=== PATIENT | female | born 1940 | race Caucasian/White ===

== ENCOUNTER 2017-05-03 20:14 | Observation (INO) | payer MEDICARE, MEDICAID ==
[2017-05-03] MEDS ORDERED: Sodium Chloride 0.9% 10 ML Syringe FLUSH PRN (21:05)
[2017-05-03] MEDS ORDERED: Sodium Chloride 0.9% 1,000 ML IV ONE (21:06)
[2017-05-03] MEDS ORDERED: oxyCODONE 5 MG Tab PO ONE (21:07)
--- NOTE | 2017-05-03 21:11 | EDM.PDOC ---
ED HPI GENERAL MEDICAL PROBLEM - General Chief Complaint: Upper Extremity Injury/Pain Stated Complaint: MED [facility] Time Seen by Provider: 05/03/17 21:00 Source of Information: Reports: Patient, Family History Limitations: Reports: No Limitations - History of Present Illness INITIAL COMMENTS - FREE TEXT/NARRATIVE: Didi is a 76 year old female who presents to the ED today with her daughter after calling 911 for dizziness/lightheadedness. Patient dropped to her knees when this happened, she denies any head trauma. Patient arrives here with c/o right sided chest pain, worse with inspiration and palpation for two days, and non productive cough. Patient denies any unilateral weakness, fever, chills, nausea or vomiting. Patient does endorse chronic diarrhea, denies any hematochezia. Patient lives alone, she feels she is safe there but also endorses generalized weakness. Patient denies any dysuria or flank pain, does endorse a one week hx of urinary frequency, urgency and more "dribbling" than normal. Onset: Gradual Right Chest Pain Score (Numeric/FACES): 5 - Related Data Allergies Allergy/AdvReac Type Severity Reaction Status Date / Time latex Allergy Rash Verified 07/04/16 10:13 codeine AdvReac Hallucinati Verified 07/04/16 10:13 ons Home Meds: Home Meds Aspirin [Halfprin] 81 mg PO DAILY 07/20/13 [History] Isosorbide Mononitrate [Imdur] 30 mg PO DAILY 07/20/13 [History] Metoprolol Tartrate 25 mg PO BID 07/20/13 [History] Calcium Citrate/Vitamin D2 [Calcium Citrate with Vit D] 1 tab PO DAILY 07/26/13 [History] Cyanocobalamin (Vitamin B-12) [Vitamin B-12] 1,000 mcg SL ASDIRECTED 07/26/13 [ History] Multivitamin [Multi-Vitamin Daily] 1 tab PO BID 07/26/13 [History] Nitroglycerin [Nitrostat] 0.4 mg SL ASDIRECTED PRN 07/26/13 [History] Vitamin B6-pyridOXINE [Vitamin B6] 50 mg PO DAILY 07/26/13 [History] Venlafaxine [Effexor XR] 150 mg PO DAILY 01/09/15 [History] Vitamin B Complex [B-100 Complex] 1 each PO DAILY 01/09/15 [History] traZODone HCl [Trazodone HCl] 100 mg PO BEDTIME 01/09/15 [History] Amitriptyline [Elavil] 200 mg PO BEDTIME 07/01/16 [History] Cholecalciferol (Vitamin D3) [Vitamin D3] 1,000 units PO DAILY 07/01/16 [History ] Omeprazole 20 mg PO DAILY 07/01/16 [History] Simvastatin [Zocor] 20 mg PO DAILY 07/01/16 [History] Zolpidem [Ambien] 5 mg PO DAILY 07/01/16 [History] Calcium Carbonate/Vitamin D3 [Calcium 500 + Vit D 400] 1 tab PO DAILY 07/02/16 [ History] Past Medical History HEENT History: Reports: Impaired Vision Cardiovascular History: Reports: CAD, Hypertension, Other (See Below) Other Cardiovascular History: dyslipidemia venous insufficiency Gastrointestinal History: Reports: Colon Polyp Genitourinary History: Reports: Other (See Below) Other Genitourinary History: urgency [employer] History: Reports: Dysfunctional Uterine Bleeding, Musculoskeletal History: Reports: Arthritis, RA Neurological History: Reports: Neuropathy, Peripheral Psychiatric History: Reports: Anxiety, Bipolar, Depression, Other (See Below) Other Psychiatric History: memory loss. Hematologic History: Reports: Anemia - Infectious Disease History Infectious Disease History: Reports: Chicken Pox, Shingles - Past Surgical History Head Surgeries/Procedures: Reports: None HEENT Surgical History: Reports: Cataract Surgery Cardiovascular Surgical History: Reports: Coronary Artery Bypass, Coronary Artery Stent GI Surgical History: Reports: Appendectomy, Bariatric Procedure, Cholecystectomy , Colonoscopy, EGD Endocrine Surgical History: Reports: None Musculoskeletal Surgical History: Reports: Knee Replacement, ORIF, Other (See Below) Social & Family History - Tobacco Use Smoking Status *Q: Never Smoker Years of Tobacco use: 40 Used Tobacco, but Quit: Yes Month Tobacco Last Used: 15 years ago Second Hand Smoke Exposure: No - Caffeine Use Caffeine Use: Reports: None - Alcohol Use Days Per Week of Alcohol Use: 0 - Recreational Drug Use Recreational Drug Use: No Review of Systems - Review of Systems Review Of Systems: See Below Constitutional: Reports: Weakness Eyes: Reports: No Symptoms Ears: Reports: No Symptoms Nose: Reports: No Symptoms Mouth/Throat: Reports: No Symptoms Respiratory: Reports: Pleuritic Chest Pain, Cough Cardiovascular: Reports: Chest Pain, Lightheadedness GI/Abdominal: Reports: Diarrhea Genitourinary: Reports: No Symptoms Musculoskeletal: Reports: Arm Pain (right upper arm) Skin: Reports: Bruising Neurological: Reports: Dizziness Psychiatric: Reports: No Symptoms ED EXAM, GENERAL - Physical Exam Exam: See Below Exam Limited By: No Limitations General Appearance: Alert, WD/WN, No Apparent Distress Eye Exam: Bilateral Eye: EOMI, PERRL Ears: Normal External Exam, Hearing Grossly Normal Neck: Normal Inspection, Supple, Non-Tender Respiratory/Chest: No Respiratory Distress, Lungs Clear, Other (Right sided chest wall tenderness) Cardiovascular: Bradycardia, Systolic Murmur (faint) Peripheral Pulses: 2+: Dorsalis Pedis (L), Dorsalis Pedis (R) GI/Abdominal: Normal Bowel Sounds, Soft, Non-Tender Extremities: Normal Range of Motion, Normal Capillary Refill, Other (tenderness right humerus) Neurological: Alert, Oriented, CN II-XII Intact, Normal Cognition, No Motor/ Sensory Deficits Psychiatric: Normal Affect Skin Exam: Warm, Dry, Intact Lymphatic: No Adenopathy EKG INTERPRETATION EKG Date: 05/03/17 Time: 21:41 Rhythm: NSR [place]: Normal P-Wave: Present QRS: Normal ST-T: Normal QT: Normal Comparison: No Change Course - Vital Signs Last Recorded V/S: Last Vital Signs Temp 36.7 C 05/03/17 20:42 Pulse 52 L 05/03/17 22:34 Resp 16 05/03/17 22:34 BP 163/83 H 05/03/17 22:34 Pulse Ox 90 L 05/03/17 22:34 Didi is a 76 year old female who presents to the ED today via EMS after having a near syncopal episode. Please refer to HPI and focused exam. Patient on arrival here endorses dizziness and generalized weakness, worse the last couple of days as well as increased urgency/frequency/dribbling. Patient on arrival here c/o right sided chest pain, likely pleuritic in nature as it worsens with palpation and inspiration, EKG obtained and is negative for any acute ischemic findings. CXR obtained and is negative for any acute findings as well. PIV established, patient given a 500 ml NS bolus, blood work and urine obtained. Patient was given a dose of oxycodone for her right chest pain as well as right arm pain with good improvement. Patient did fall on right arm a month ago with no imaging at that time, x-ray of humerus obtained in the ED today and is negative. CT scan of head obtained and is negative for any acute intracranial abnormality. Blood work shows a normal white count and stable HGB. CMP returns with anion gap of 4.9. Calcium is 8.4, alkaline phos of 145, total protein of 6.2. Troponin is undetectable. UA is positive, UC pending. Patient given a dose of IV Rocephin. I feel based on near syncope with acute infection , patient would be appropriate for observation admission, fluids and antibiotics. Likely be fine to discharge tomorrow morning. Patient and daughter agreeable. Dr. Calderon accepted patient and will be down to do admit orders. - Orders/Labs/Meds Orders: Active Orders 24 hr Category Date Time Status EKG Documentation Completion [RC] ASDIRECTED Care 05/03/17 21:05 Active Peripheral IV Care [RC] . DIRECTED Care 05/03/17 21:05 Active Chest 2V [CR] Stat Exams 05/03/17 21:06 Taken Head wo Cont [CT] Stat Exams 05/03/17 21:14 Ordered Humerus Rt [CR] Stat Exams 05/03/17 21:06 Taken CULTURE URINE [RM] Stat Lab 05/03/17 22:00 Received Sodium Chloride 0.9% [Normal Saline] 1,000 ml Med 05/03/17 21:06 Active IV .BOLUS Sodium Chloride 0.9% [Saline Flush] Med 05/03/17 21:05 Active 10 ml FLUSH ASDIRECTED PRN cefTRIAXone [Rocephin] 1 gm Med 05/03/17 22:47 Ordered Sodium Chloride 0.9% [Normal Saline] 50 ml IV ONETIME Peripheral IV Insertion Adult [OM.PC] Routine Oth 05/03/17 21:05 Ordered EKG 12 Lead [EK] Stat Ther 05/03/17 21:05 Ordered Medication Orders Sodium Chloride (Normal Saline) 1,000 mls @ 500 mls/hr IV .BOLUS ONE Stop: 05/03/17 23:05 Last Admin: 05/03/17 21:28 Dose: 500 mls/hr Ceftriaxone Sodium 1 gm/ (Sodium Chloride) 50 mls @ 100 mls/hr IV ONETIME ONE Stop: 05/03/17 23:16 Sodium Chloride (Saline Flush) 10 ml FLUSH ASDIRECTED PRN PRN Reason: Keep Vein Open Last Admin: 05/03/17 21:28 Dose: 10 ml Labs: Laboratory Tests 05/03/17 05/03/17 05/03/17 Range/Units 21:18 21:18 21:43 WBC 5.1 (4.5-11.0) K/uL RBC 4.62 (3.30-5.50) M/uL Hgb 12.9 (12.0-15.0) g/dL Hct 41.3 (36.0-48.0) % MCV 89 (80-98) fL MCH 28 (27-31) pg MCHC 31 L (32-36) % Plt Count 179 (150-400) K/uL Neut % (Auto) 53 (36-66) % Lymph % (Auto) 32 (24-44) % [place] % (Auto) 10 H (2-6) % Eos % (Auto) 5 H (2-4) % Baso % (Auto) 1 (0-1) % Sodium 142 (140-148) mmol/L Potassium 4.4 (3.6-5.2) mmol/L Chloride 107 (100-108) mmol/L Carbon Dioxide 30 (21-32) mmol/L Anion Gap 4.9 L (5.0-14.0) mmol/L BUN 14 (7-18) mg/dL Creatinine 0.8 (0.6-1.0) mg/dL Est Cr Clr Drug Dosing 43.64 mL/min Estimated GFR (MDRD) > 60 (>60) Glucose 87 (74-106) mg/dL Calcium 8.4 L (8.5-10.1) mg/dL Total Bilirubin 0.2 D (0.2-1.0) mg/dL AST 20 (15-37) U/L ALT 16 (12-78) U/L Alkaline Phosphatase 145 H (46-116) U/L Troponin I < 0.017 (0.000-0.056) ng/mL Total Protein 6.2 L (6.4-8.2) g/dL Albumin 2.8 L (3.4-5.0) g/dL Globulin 3.4 (2.3-3.5) g/dL Albumin/Globulin Ratio 0.8 L (1.2-2.2) Urine Color Yellow Urine Appearance Cloudy Urine pH 5.0 (4.5-8.0) Ur Specific [place] 1.020 (1.008-1.030) Urine Protein Negative (NEGATIVE) mg/dL Urine Glucose (UA) Normal (NEGATIVE) mg/dL Urine Ketones Negative (NEGATIVE) mg/dL Urine Occult Blood Negative (NEGATIVE) Urine Nitrite Negative (NEGATIVE) Urine Bilirubin Small (NEGATIVE) Urine Urobilinogen 1 (NORMAL) mg/dL Ur Leukocyte Esterase Large (NEGATIVE) Urine RBC Not seen (0-5) Urine WBC 20-30 H (0-5) Ur Epithelial Cells Occasional Amorphous Sediment Few Urine Bacteria Few Urine Mucus Numerous Meds: Medications Generic Name Dose Route Start Last Admin Trade Name Freq PRN Reason Stop Dose Admin Sodium Chloride 1,000 mls @ 500 mls/hr 05/03/17 21:06 05/03/17 21:28 Normal Saline IV 05/03/17 23:05 500 mls/hr .BOLUS ONE Administration Ceftriaxone Sodium 1 gm/ 50 mls @ 100 mls/hr 05/03/17 22:47 Sodium Chloride IV 05/03/17 23:16 ONETIME ONE Sodium Chloride 10 ml 05/03/17 21:05 05/03/17 21:28 Saline Flush FLUSH 10 ml ASDIRECTED PRN Administration Keep Vein Open Discontinued Medications Generic Name Dose Route Start Last Admin Trade Name Freq PRN Reason Stop Dose Admin Oxycodone HCl 10 mg 05/03/17 21:07 05/03/17 21:25 Oxycodone PO 05/03/17 21:08 10 mg ONETIME ONE Administration Oxycodone HCl Confirm 05/03/17 21:27 Oxycodone Administered 05/03/17 21:28 Dose 5 mg .ROUTE .STK-MED ONE Departure - Departure Time of Disposition: 23:15 Disposition: Admitted As Inpatient 67 Condition: Good Clinical Impression: Near syncope, UTI (urinary tract infection), bacterial, Generalized weakness - Discharge Information Forms: ED Department Discharge - My Orders Last 24 Hours: My Active Orders 05/03/17 21:05 EKG Documentation Completion [RC] ASDIRECTED Peripheral IV Care [RC] . DIRECTED Sodium Chloride 0.9% [Saline Flush] 10 ml FLUSH ASDIRECTED PRN Peripheral IV Insertion Adult [OM.PC] Routine EKG 12 Lead [EK] Stat 05/03/17 21:06 Chest 2V [CR] Stat Humerus Rt [CR] Stat Sodium Chloride 0.9% [Normal Saline] 1,000 ml IV .BOLUS 05/03/17 21:14 Head wo Cont [CT] Stat 05/03/17 22:00 CULTURE URINE [RM] Stat 05/03/17 22:47 cefTRIAXone [Rocephin] 1 gm Sodium Chloride 0.9% [Normal Saline] 50 ml IV ONETIME - Assessment/Plan Last 24 Hours: My Active Orders 05/03/17 21:05 EKG Documentation Completion [RC] ASDIRECTED Peripheral IV Care [RC] . DIRECTED Sodium Chloride 0.9% [Saline Flush] 10 ml FLUSH ASDIRECTED PRN Peripheral IV Insertion Adult [OM.PC] Routine EKG 12 Lead [EK] Stat 05/03/17 21:06 Chest 2V [CR] Stat Humerus Rt [CR] Stat Sodium Chloride 0.9% [Normal Saline] 1,000 ml IV .BOLUS 05/03/17 21:14 Head wo Cont [CT] Stat 05/03/17 22:00 CULTURE URINE [RM] Stat 05/03/17 22:47 cefTRIAXone [Rocephin] 1 gm Sodium Chloride 0.9% [Normal Saline] 50 ml IV ONETIME
[2017-05-03] MEDS ORDERED: oxyCODONE 5 MG Tab ONE (21:27)
[2017-05-03] MEDS ORDERED: cefTRIAXone 1 GM in Sodium Chloride 0.9% 50 ML IV ONE (22:47)
--- NOTE | 2017-05-03 23:39 | PCM.HP ---
H&P History of Present Illness - General Date of Service: 05/03/17 Admit Problem/Dx: Admission Diagnosis/Problem Admission Diagnosis/Problem Weakness Source of Information: Patient, Provider, RN Notes Reviewed History Limitations: Reports: No Limitations - History of Present Illness Initial Comments - Free Text/Narative: Ms. Alcaraz is a 76-year-old woman who is admitted to observation status through the emergency department for further observation and evaluation of weakness and urinary tract infection. She'll not felt well over the past 2 days is experienced some right shoulder and arm pain for the past month seems to been worse over the past [address] scan of the head was obtained and found to be unremarkable chest x-ray is clear. White blood cell count modestly elevated and she is noted to have obvious evidence of urinary tract infection. Over the past 2 days with increase in symptoms has become progressively more weak. Right Chest Pain Score (Numeric/FACES): 5 - Related Data Allergies/Adverse Reactions: Allergies Allergy/AdvReac Type Severity Reaction Status Date / Time latex Allergy Rash Verified 07/04/16 10:13 codeine AdvReac Hallucinati Verified 07/04/16 10:13 ons Home Medications: Home Meds Aspirin [Halfprin] 81 mg PO DAILY 07/20/13 [History] Isosorbide Mononitrate [Imdur] 30 mg PO DAILY 07/20/13 [History] Metoprolol Tartrate 25 mg PO BID 07/20/13 [History] Calcium Citrate/Vitamin D2 [Calcium Citrate with Vit D] 1 tab PO DAILY 07/26/13 [History] Cyanocobalamin (Vitamin B-12) [Vitamin B-12] 1,000 mcg SL ASDIRECTED 07/26/13 [ History] Multivitamin [Multi-Vitamin Daily] 1 tab PO BID 07/26/13 [History] Nitroglycerin [Nitrostat] 0.4 mg SL ASDIRECTED PRN 07/26/13 [History] Vitamin B6-pyridOXINE [Vitamin B6] 50 mg PO DAILY 07/26/13 [History] Venlafaxine [Effexor XR] 150 mg PO DAILY 01/09/15 [History] Vitamin B Complex [B-100 Complex] 1 each PO DAILY 01/09/15 [History] traZODone HCl [Trazodone HCl] 100 mg PO BEDTIME 04/06/15 [History] Amitriptyline [Elavil] 200 mg PO BEDTIME 07/01/16 [History] Cholecalciferol (Vitamin D3) [Vitamin D3] 1,000 units PO DAILY 07/01/16 [History ] Omeprazole 20 mg PO DAILY 07/01/16 [History] Simvastatin [Zocor] 20 mg PO DAILY 07/01/16 [History] Zolpidem [Ambien] 5 mg PO DAILY 07/01/16 [History] Calcium Carbonate/Vitamin D3 [Calcium 500 + Vit D 400] 1 tab PO DAILY 07/02/16 [ History] Past Medical History HEENT History: Reports: Impaired Vision Cardiovascular History: Reports: CAD, Hypertension, Other (See Below) Other Cardiovascular History: dyslipidemia venous insufficiency Gastrointestinal History: Reports: Colon Polyp Genitourinary History: Reports: Other (See Below) Other Genitourinary History: urgency [employer] History: Reports: Dysfunctional Uterine Bleeding, Musculoskeletal History: Reports: Arthritis, RA Neurological History: Reports: Neuropathy, Peripheral Psychiatric History: Reports: Anxiety, Bipolar, Depression, Other (See Below) Other Psychiatric History: memory loss. Hematologic History: Reports: Anemia - Infectious Disease History Infectious Disease History: Reports: Chicken Pox, Shingles - Past Surgical History Head Surgeries/Procedures: Reports: None HEENT Surgical History: Reports: Cataract Surgery Cardiovascular Surgical History: Reports: Coronary Artery Bypass, Coronary Artery Stent GI Surgical History: Reports: Appendectomy, Bariatric Procedure, Cholecystectomy , Colonoscopy, EGD Endocrine Surgical History: Reports: None Musculoskeletal Surgical History: Reports: Knee Replacement, ORIF, Other (See Below) Social & Family History - Tobacco Use Smoking Status *Q: Never Smoker Years of Tobacco use: 40 Used Tobacco, but Quit: Yes Month Tobacco Last Used: 15 years ago Second Hand Smoke Exposure: No - Caffeine Use Caffeine Use: Reports: None - Alcohol Use Days Per Week of Alcohol Use: 0 - Recreational Drug Use Recreational Drug Use: No H&P Review of Systems - Review of Systems: Review Of Systems: See Below General: Reports: Weakness. Denies: Fever, Chills HEENT: Reports: No Symptoms Pulmonary: Reports: No Symptoms Cardiovascular: Reports: No Symptoms Gastrointestinal: Reports: No Symptoms Genitourinary: Denies: Dysuria, Frequency, Burning, Urgency, Incontinence, Hematuria Musculoskeletal: Reports: Shoulder Pain, Arm Pain Skin: Reports: No Symptoms Psychiatric: Reports: No Symptoms Neurological: Reports: No Symptoms Hematologic/Lymphatic: Reports: No Symptoms Immunologic: Reports: No Symptoms Exam - Exam Exam: See Below - Vital Signs Vital Signs: Last Vital Signs Temp 98.1 F 05/03/17 20:42 Pulse 52 L 05/03/17 22:34 Resp 16 05/03/17 22:34 BP 163/83 H 05/03/17 22:34 Pulse Ox 90 L 05/03/17 22:34 Weight: 160 lb - Exam Quality Assessment: DVT Prophylaxis General: Alert, Oriented, Cooperative, Mild Distress HEENT: Conjunctiva Clear, EOMI, Hearing Intact, Mucosa Moist & [place], Nares Patent, Normal Nasal Septum, Posterior Pharynx Clear, Pupils Equal Neck: Supple, Trachea Midline, +2 Carotid Pulse wo Bruit Lungs: Clear to Auscultation, Normal Respiratory Effort Cardiovascular: Regular Rate, Regular Rhythm, Normal S1, Normal S2. No: Systolic Murmur, Diastolic Murmur GI/Abdominal Exam: Normal Bowel Sounds, Soft, Non-Tender, No Distention Back Exam: Normal Inspection, Full Range of Motion, NT Extremities: Other (Pain right shoulder and arm) Skin: Warm, Dry, Intact Neurological: Cranial Nerves Intact, Strength Equal Bilateral, Normal Speech, Normal Tone, Sensation Intact. No: Focal Deficit Neuro Extensive - Mental Status: Alert, Oriented x3, Normal Mood/Affect, Normal Cognition, Memory Intact - Patient Data Lab Results Last 24 hrs: Laboratory Results - last 24 hr 05/03/17 05/03/17 05/03/17 Range/Units 21:18 21:18 21:43 WBC 5.1 (4.5-11.0) K/uL RBC 4.62 (3.30-5.50) M/uL Hgb 12.9 (12.0-15.0) g/dL Hct 41.3 (36.0-48.0) % MCV 89 (80-98) fL MCH 28 (27-31) pg MCHC 31 L (32-36) % Plt Count 179 (150-400) K/uL Neut % (Auto) 53 (36-66) % Lymph % (Auto) 32 (24-44) % [place] % (Auto) 10 H (2-6) % Eos % (Auto) 5 H (2-4) % Baso % (Auto) 1 (0-1) % Sodium 142 (140-148) mmol/L Potassium 4.4 (3.6-5.2) mmol/L Chloride 107 (100-108) mmol/L Carbon Dioxide 30 (21-32) mmol/L Anion Gap 4.9 L (5.0-14.0) mmol/L BUN 14 (7-18) mg/dL Creatinine 0.8 (0.6-1.0) mg/dL Est Cr Clr Drug Dosing 43.64 mL/min Estimated GFR (MDRD) > 60 (>60) Glucose 87 (74-106) mg/dL Calcium 8.4 L (8.5-10.1) mg/dL Total Bilirubin 0.2 D (0.2-1.0) mg/dL AST 20 (15-37) U/L ALT 16 (12-78) U/L Alkaline Phosphatase 145 H (46-116) U/L Troponin I < 0.017 (0.000-0.056) ng/mL Total Protein 6.2 L (6.4-8.2) g/dL Albumin 2.8 L (3.4-5.0) g/dL Globulin 3.4 (2.3-3.5) g/dL Albumin/Globulin Ratio 0.8 L (1.2-2.2) Urine Color Yellow Urine Appearance Cloudy Urine pH 5.0 (4.5-8.0) Ur Specific [place] 1.020 (1.008-1.030) Urine Protein Negative (NEGATIVE) mg/dL Urine Glucose (UA) Normal (NEGATIVE) mg/dL Urine Ketones Negative (NEGATIVE) mg/dL Urine Occult Blood Negative (NEGATIVE) Urine Nitrite Negative (NEGATIVE) Urine Bilirubin Small (NEGATIVE) Urine Urobilinogen 1 (NORMAL) mg/dL Ur Leukocyte Esterase Large (NEGATIVE) Urine RBC Not seen (0-5) Urine WBC 20-30 H (0-5) Ur Epithelial Cells Occasional Amorphous Sediment Few Urine Bacteria Few Urine Mucus Numerous Result Diagrams: 05/03/17 21:18 05/03/17 21:18 *Q Meaningful Use (ADM) - VTE *Q VTE Criteria *Q: - VTE Risk Assess *Q Each Risk Factor Represents 1 Point: Obesity (BMI greater than 30) Total Score 1 Point Risk Factors: 1 Each Risk Factor Represents 2 Points: None Total Score 2 Point Risk Factors: 0 Each Risk Factor Represents 3 Points: Age 75 Years or Greater Total Score 3 Point Risk Factors: 3 Each Risk Factor Represents 5 Points: None Total Score 5 Point Risk Factors: 0 Venous Thromboembolism Risk Factor Score *Q: 4 - Stroke *Q Stroke Criteria *Q: - AMI *Q AMI Criteria *Q: Problem List Initiated/Reviewed/Updated: Yes Orders Last 24hrs: Active Orders 24 hr Category Date Time Status Patient Status Manage Transfer [TRANSFER] Routine ADT 05/03/17 23:14 Active EKG Documentation Completion [RC] ASDIRECTED Care 05/03/17 21:05 Active Peripheral IV Care [RC] . DIRECTED Care 05/03/17 21:05 Active Chest 2V [CR] Stat Exams 05/03/17 21:06 Taken Head wo Cont [CT] Stat Exams 05/03/17 21:14 Taken Humerus Rt [CR] Stat Exams 05/03/17 21:06 Taken CULTURE URINE [RM] Stat Lab 05/03/17 22:00 Received Sodium Chloride 0.9% [Saline Flush] Med 05/03/17 21:05 Active 10 ml FLUSH ASDIRECTED PRN Peripheral IV Insertion Adult [OM.PC] Routine Oth 05/03/17 21:05 Ordered Resuscitation Status Routine Resus Stat 05/03/17 23:17 Ordered EKG 12 Lead [EK] Stat Ther 05/03/17 21:05 Ordered Medication Orders Sodium Chloride (Saline Flush) 10 ml FLUSH ASDIRECTED PRN PRN Reason: Keep Vein Open Last Admin: 05/03/17 21:28 Dose: 10 ml Assessment/Plan Comment:: ASSESSMENT AND PLAN URINARY TRACT INFECTION-no significant symptoms or evidence of sepsis -IV fluids for hydration -Urine culture pending -Rocephin 1 g IV every 24 hours WEAKNESS-secondary to urinary tract infection -IV fluids as above MAINTENANCE ISSUES -DVT prophylaxis; Lovenox 40 mg subcutaneous daily -GI prophylaxis; continue outpatient PPI therapy -Downs catheter; not indicated -Nutrition; regular diet -Nicotinic dependence; not required CODE STATUS-FULL CODE ADMISSION STATUS-this patient will be admitted to observation status, expect no more than a one night hospital stay for evaluation and management of problems as outlined above. DISPOSITION-anticipate discharge to home after the hospital stay. PRIMARY CARE PROVIDER-
[2017-05-04] MEDS ORDERED: Docusate Sodium 100 MG Cap PO PRN (00:24)
[2017-05-04] MEDS ORDERED: Sodium Chloride 0.9% 10 ML Syringe FLUSH PRN (00:24)
[2017-05-04] MEDS ORDERED: Magnesium Hydroxide 400 MG/5 ML Susp 30 ML Cup PO PRN (00:24)
[2017-05-04] MEDS ORDERED: cefTRIAXone 1 GM in Sodium Chloride 0.9% 50 ML IV SCH (00:24)
[2017-05-04] MEDS ORDERED: Zolpidem 5 MG Tab PO PRN (00:24)
[2017-05-04] MEDS ORDERED: Ondansetron 4 MG/2 ML SDV IV PRN (00:24)
[2017-05-04] MEDS ORDERED: Enoxaparin 40 MG/0.4 ML Syringe SUBCUT SCH ×2 (00:24→21:00)
[2017-05-04] MEDS ORDERED: Polyethylene Glycol 3350 Powder 17 GM Packet PO PRN (00:24)
[2017-05-04] MEDS ORDERED: Acetaminophen 325 MG Tab PO PRN (00:24)
[2017-05-04] MEDS: Sodium Chloride 0.9% 1,000 ML IV SCH ×2 (00:49→07:58)
[2017-05-04] MEDS: oxyCODONE 5 MG Tab PO PRN ×2 (01:06→05:17)
[2017-05-04] MEDS ORDERED: Pantoprazole 40 MG Tab.CR PO SCH (07:30)
[2017-05-04] MEDS ORDERED: Simvastatin 20 MG Tab PO SCH (09:00)
[2017-05-04] MEDS ORDERED: Metoprolol Tartrate 25 MG Tab PO SCH (09:00)
[2017-05-04] MEDS ORDERED: Venlafaxine 75 MG Cap.ER PO SCH (09:00)
[2017-05-04] MEDS ORDERED: Aspirin 81 MG Tab.EC PO SCH (09:00)
--- NOTE | 2017-05-04 11:20 | PCM.DCSUM1 ---
Discharge Summary - Hospital Course Brief History: Ms. Alcaraz is a 76-year-old woman who was admitted to observation status through the emergency room for evaluation of weakness secondary to urinary tract infection and dehydration. - Discharge Data Discharge Date: 05/04/17 Discharge Disposition: Home, Self-Care 01 Condition: Fair - Discharge Diagnosis/Problem(s) (1) UTI (urinary tract infection), bacterial SNOMED Code(s): 154087077 ICD Code: N39.0 - URINARY TRACT INFECTION, SITE NOT SPECIFIED; A49.9 - BACTERIAL INFECTION, UNSPECIFIED Status: Acute Current Visit: Yes (2) Generalized weakness SNOMED Code(s): 23526804 ICD Code: R53.1 - WEAKNESS Status: Acute Current Visit: Yes (3) Dehydration SNOMED Code(s): 72757847 ICD Code: E86.0 - DEHYDRATION Status: Acute Current Visit: No - Patient Summary/Data Hospital Course: Ms. Alcaraz is a 76-year-old woman who developed symptoms of weakness over a period of 2 days prior to admission. She also is had ongoing difficulty with pain in her right shoulder extending into the right upper lateral chest wall. CT scan of the head was obtained in the emergency department and showed no acute abnormalities. Troponin level was normal and EKG showed no acute ST segment changes. She had tenderness to palpation in the shoulder and upper chest wall pain was felt to be secondary to musculoskeletal cause, likely muscular chest wall pain with underlying osteoarthritis of the right shoulder. Urinalysis did show evidence of urinary tract infection and she was felt to be dehydrated causing her weakness. She was admitted to observation status and given IV fluids for hydration as well as a dose of IV Rocephin. Urine culture was obtained prior to antibiotic therapy and the results are pending at the time of discharge. She was feeling somewhat better by the following morning and will be discharged home on oral antibiotic therapy with Septra DS 1 by mouth twice a day for an additional 6 days. Activity will be as tolerated and she will resume her usual diet. Follow-up appointment will be scheduled with her primary care provider Melly Ignacio within one week. - Patient Instructions Diet: Usual Diet as Tolerated Activity: As Tolerated Other/Special Instructions: Please schedule follow-up appointment with Melly Ignacio within one week. - Discharge Plan Prescriptions/Med Rec: Sulfamethoxazole/Trimethoprim [Septra DS] 1 each PO BID #12 tab Home Medications: Home Meds Aspirin [Halfprin] 81 mg PO DAILY 07/20/13 [History] Isosorbide Mononitrate [Imdur] 30 mg PO DAILY 07/20/13 [History] Metoprolol Tartrate 25 mg PO BID 07/20/13 [History] Calcium Citrate/Vitamin D2 [Calcium Citrate with Vit D] 1 tab PO DAILY 07/26/13 [History] Cyanocobalamin (Vitamin B-12) [Vitamin B-12] 1,000 mcg SL ASDIRECTED 07/26/13 [ History] Multivitamin [Multi-Vitamin Daily] 1 tab PO BID 07/26/13 [History] Nitroglycerin [Nitrostat] 0.4 mg SL ASDIRECTED PRN 07/26/13 [History] Vitamin B6-pyridOXINE [Vitamin B6] 50 mg PO DAILY 07/26/13 [History] Venlafaxine [Effexor XR] 150 mg PO DAILY 01/09/15 [History] Vitamin B Complex [B-100 Complex] 1 each PO DAILY 01/09/15 [History] traZODone HCl [Trazodone HCl] 100 mg PO BEDTIME 01/09/15 [History] Amitriptyline [Elavil] 200 mg PO BEDTIME 07/01/16 [History] Cholecalciferol (Vitamin D3) [Vitamin D3] 1,000 units PO DAILY 07/01/16 [History ] Omeprazole 20 mg PO DAILY 07/01/16 [History] Simvastatin [Zocor] 20 mg PO DAILY 07/01/16 [History] Zolpidem [Ambien] 5 mg PO DAILY 07/01/16 [History] Calcium Carbonate/Vitamin D3 [Calcium 500 + Vit D 400] 1 tab PO DAILY 07/02/16 [ History] Sulfamethoxazole/Trimethoprim [Septra DS] 1 each PO BID #12 tab 05/04/17 [Rx] Referrals: Melly Ignacio NP [Advanced RN Practitioner] - - Patient Data Vitals - Most Recent: Last Vital Signs Temp 97.1 F 05/04/17 07:35 Pulse 94 05/04/17 08:36 Resp 16 05/04/17 07:35 BP 110/65 05/04/17 08:36 Pulse Ox 94 L 05/04/17 07:35 Weight - Most Recent: 165 lb 5.547 oz I&O - Last 24 hours: Intake & Output 07/29/17 07/30/17 07/30/17 22:59 06:59 14:59 Intake Total 674 480 Balance 674 480 Lab Results - Last 24 hrs: Laboratory Results - last 24 hr 05/04/17 05/04/17 Range/Units 05:30 05:30 WBC 6.1 (4.5-11.0) K/uL RBC 4.36 (3.30-5.50) M/uL Hgb 12.4 (12.0-15.0) g/dL Hct 39.5 (36.0-48.0) % MCV 91 (80-98) fL MCH 28 (27-31) pg MCHC 31 L (32-36) % Plt Count 165 (150-400) K/uL Neut % (Auto) 57 (36-66) % Lymph % (Auto) 28 (24-44) % [place] % (Auto) 11 H (2-6) % Eos % (Auto) 5 H (2-4) % Baso % (Auto) 1 (0-1) % Sodium 142 (140-148) mmol/L Potassium 3.8 (3.6-5.2) mmol/L Chloride 110 H (100-108) mmol/L Carbon Dioxide 27 (21-32) mmol/L Anion Gap 8.8 (5.0-14.0) mmol/L BUN 12 (7-18) mg/dL Creatinine 0.7 (0.6-1.0) mg/dL Est Cr Clr Drug Dosing 49.88 mL/min Estimated GFR (MDRD) > 60 (>60) Glucose 73 L (74-106) mg/dL Calcium 8.1 L (8.5-10.1) mg/dL Med Orders - Current: Current Medications Acetaminophen (Tylenol) 650 mg PO Q4H PRN PRN Reason: Pain (Mild 1-3)/fever Amitriptyline HCl (Elavil) 200 mg PO BEDTIME BETO Aspirin (Halfprin) 81 mg PO DAILY BETO Last Admin: 05/04/17 08:35 Dose: 81 mg Docusate Sodium (Colace) 100 mg PO BID PRN PRN Reason: Constipation Enoxaparin Sodium (Lovenox) 40 mg SUBCUT Q24H BETO Sodium Chloride (Normal Saline) 1,000 mls @ 125 mls/hr IV ASDIRECTED [facility] Last Admin: 05/04/17 07:58 Dose: 125 mls/hr Ceftriaxone Sodium 1 gm/ (Sodium Chloride) 50 mls @ 100 mls/hr IV Q24H [facility] Last Admin: 05/04/17 10:45 Dose: Not Given Magnesium Hydroxide (Milk Of Magnesia) 30 ml PO Q12H PRN PRN Reason: Constipation Metoprolol Tartrate (Lopressor) 25 mg PO BID [facility] Last Admin: 05/04/17 08:36 Dose: 25 mg Ondansetron HCl (Zofran) 4 mg IV Q4H PRN PRN Reason: Nausea/Vomiting Oxycodone HCl (Oxycodone) 10 mg PO Q4H PRN PRN Reason: Pain (moderate 4-6) Last Admin: 05/04/17 05:17 Dose: 10 mg Pantoprazole Sodium (Protonix) 40 mg PO ACBREAKFAST [facility] Last Admin: 05/04/17 08:35 Dose: 40 mg Polyethylene Glycol (Miralax) 17 gm PO DAILY PRN PRN Reason: Constipation Simvastatin (Zocor) 20 mg PO DAILY [facility] Last Admin: 05/04/17 08:37 Dose: 20 mg Sodium Chloride (Saline Flush) 10 ml FLUSH ASDIRECTED PRN PRN Reason: Keep Vein Open Trazodone HCl (Trazodone) 100 mg PO BEDTIME [facility] Venlafaxine HCl (Effexor Xr) 150 mg PO DAILY [facility] Last Admin: 05/04/17 08:35 Dose: 150 mg Zolpidem Tartrate (Ambien) 5 mg PO BEDTIME PRN PRN Reason: Sleep Last Admin: 05/04/17 01:05 Dose: 5 mg Discontinued Medications Enoxaparin Sodium (Lovenox) 40 mg SUBCUT DAILY [facility] Last Admin: 05/04/17 01:05 Dose: 40 mg Sodium Chloride (Normal Saline) 1,000 mls @ 500 mls/hr IV .BOLUS ONE Stop: 05/03/17 23:05 Last Admin: 05/03/17 21:28 Dose: 500 mls/hr Ceftriaxone Sodium 1 gm/ (Sodium Chloride) 50 mls @ 100 mls/hr IV ONETIME ONE Stop: 05/03/17 23:16 Last Admin: 05/03/17 23:14 Dose: 100 mls/hr Oxycodone HCl (Oxycodone) 10 mg PO ONETIME ONE Stop: 05/03/17 21:08 Last Admin: 05/03/17 21:25 Dose: 10 mg Oxycodone HCl (Oxycodone) Confirm Administered Dose 5 mg .ROUTE .STK-MED ONE Stop: 05/03/17 21:28 Last Admin: 05/03/17 23:14 Dose: Not Given Sodium Chloride (Saline Flush) 10 ml FLUSH ASDIRECTED PRN PRN Reason: Keep Vein Open Last Admin: 05/03/17 21:28 Dose: 10 ml *Q Meaningful Use (DIS) - VTE *Q VTE Criteria *Q: - Stroke *Q Stroke Criteria *Q: - AMI *Q AMI Criteria *Q:
[2017-05-04 11:53] VITALS: BP 135/73
[2017-05-04] MEDS ORDERED: traZODone 50 MG Tab PO SCH (21:00)
--- NOTE | 2017-05-05 10:45 | CR ---
No fracture or dislocation.
--- NOTE | 2017-05-05 10:47 | CR ---
Heart size stable. Tortuous aorta redemonstrated. No focal consolidation.
== END 2017-05-04 14:12 | disposition home or self-care (01) ==
LOC: JP.ED 20:14 → JP.MS 23:14
PROVIDERS: ADMIT Hospitalist; ATTEND Hospitalist
DX: N39.0 Urinary tract infection, site not specified (principal); R53.1 Weakness; E86.0 Dehydration; I25.10 Atherosclerotic heart disease of native coronary artery without angina pectoris; I10 Essential (primary) hypertension; E78.5 Hyperlipidemia, unspecified; F41.8 Other specified anxiety disorders; F32.9 Major depressive disorder, single episode, unspecified; Z95.1 Presence of aortocoronary bypass graft; Z95.5 Presence of coronary angioplasty implant and graft; Z96.659 Presence of unspecified artificial knee joint; Z90.49 Acquired absence of other specified parts of digestive tract; Z79.82 Long term (current) use of aspirin; Z79.899 Other long term (current) drug therapy; Z88.8 Allergy status to other drugs, medicaments and biological substances; Z91.040 Latex allergy status; Z98.84 Bariatric surgery status
CPT/HCPCS: 36415; 70450; 71020; 73060; 80048; 80053; 81001; 84484; 85025; 87086; 93005; 96361; 96365; 96372; 99285; A9270; G0378; J0696; J1650; J7040; J7050; 93010; 99217; 99219

== ENCOUNTER 2018-03-10 18:01 | Emergency (ER) | payer MEDICARE, MEDICAID ==
[2018-03-10] MEDS ORDERED: Acetaminophen/HYDROcodone 325-5 MG Tab PO ONE (18:45)
--- NOTE | 2018-03-10 19:49 | EDM.PDOC ---
ED HPI GENERAL MEDICAL PROBLEM - General Chief Complaint: Lower Extremity Injury/Pain Stated Complaint: HIP PAIN Time Seen by Provider: 03/10/18 19:46 Source of Information: Reports: Patient, Family History Limitations: Reports: No Limitations - History of Present Illness INITIAL COMMENTS - FREE TEXT/NARRATIVE: pt was in the garden and turned and she heard something pop. She then was doing a little cleaning and she head something pop again. She is now having trouble getting out of bed and using the leg. Onset: Other (This occured in the past 2 days. ) Duration: Hour(s): Location: Reports: Lower Extremity, Left Associated Symptoms: Reports: No Other Symptoms Left Hip Pain Score (Numeric/FACES): 6 - Related Data Allergies Allergy/AdvReac Type Severity Reaction Status Date / Time latex Allergy Rash Verified 07/04/16 10:13 codeine AdvReac Hallucinati Verified 07/04/16 10:13 ons Home Meds: Home Meds Aspirin [Halfprin] 81 mg PO DAILY 07/20/13 [History] Isosorbide Mononitrate [Imdur] 30 mg PO DAILY 07/20/13 [History] Metoprolol Tartrate 25 mg PO BID 07/20/13 [History] Calcium Citrate/Vitamin D2 [Calcium Citrate with Vit D] 1 tab PO DAILY 07/26/13 [History] Cyanocobalamin (Vitamin B-12) [Vitamin B-12] 1,000 mcg SL ASDIRECTED 07/26/13 [ History] Multivitamin [Multi-Vitamin Daily] 1 tab PO BID 07/26/13 [History] Nitroglycerin [Nitrostat] 0.4 mg SL ASDIRECTED PRN 07/26/13 [History] Venlafaxine [Effexor XR] 150 mg PO DAILY 01/09/15 [History] Vitamin B Complex [B-100 Complex] 1 each PO DAILY 01/09/15 [History] traZODone HCl [Trazodone HCl] 100 mg PO BEDTIME 01/09/15 [History] Amitriptyline [Elavil] 200 mg PO BEDTIME 07/01/16 [History] Cholecalciferol (Vitamin D3) [Vitamin D3] 1,000 units PO DAILY 07/01/16 [History ] Omeprazole 20 mg PO DAILY 07/01/16 [History] Simvastatin [Zocor] 20 mg PO DAILY 07/01/16 [History] Zolpidem [Ambien] 5 mg PO DAILY 07/01/16 [History] Donepezil HCl [Aricept] 10 mg PO DAILY 03/10/18 [History] Gabapentin [Neurontin] 100 mg PO TID 03/10/18 [History] Ibuprofen [Motrin] 600 mg PO Q6H PRN 03/10/18 [History] Methocarbamol 1,500 mg PO QID 03/10/18 [History] Pyridoxine HCl [Vitamin B-6] 50 mg PO DAILY 03/10/18 [History] Past Medical History HEENT History: Reports: Impaired Vision Cardiovascular History: Reports: CAD, Hypertension, PR, Other (See Below) Other Cardiovascular History: dyslipidemia venous insufficiency Gastrointestinal History: Reports: Colon Polyp Genitourinary History: Reports: Other (See Below) Other Genitourinary History: urgency PERIODONTIST History: Reports: Dysfunctional Uterine Bleeding, Musculoskeletal History: Reports: Arthritis, RA Neurological History: Reports: Neuropathy, Peripheral Psychiatric History: Reports: Anxiety, Bipolar, Depression, Other (See Below) Other Psychiatric History: memory loss. Hematologic History: Reports: Anemia - Infectious Disease History Infectious Disease History: Reports: Chicken Pox, Shingles - Past Surgical History Head Surgeries/Procedures: Reports: None HEENT Surgical History: Reports: Cataract Surgery Cardiovascular Surgical History: Reports: Coronary Artery Stent GI Surgical History: Reports: Appendectomy, Bariatric Procedure, Cholecystectomy , Colonoscopy, EGD Female Surgical History: Reports: Hysterectomy Endocrine Surgical History: Reports: None Musculoskeletal Surgical History: Reports: Knee Replacement, ORIF, Other (See Below) Social & Family History - Family History Family Medical History: Noncontributory - Tobacco Use Smoking Status *Q: Never Smoker - Caffeine Use Caffeine Use: Reports: Soda - Recreational Drug Use Recreational Drug Use: No Review of Systems - Review of Systems Review Of Systems: See Below Constitutional: Reports: No Symptoms Eyes: Reports: No Symptoms Ears: Reports: No Symptoms Nose: Reports: No Symptoms Mouth/Throat: Reports: No Symptoms Respiratory: Reports: No Symptoms Cardiovascular: Reports: No Symptoms GI/Abdominal: Reports: No Symptoms Genitourinary: Reports: No Symptoms Musculoskeletal: Reports: Other ( pain in the left hip area.) ED EXAM, GENERAL - Physical Exam Exam: See Below Free Text/Narrative:: pt arrived with pain in the left hip and left side of the pelvis. She hurts whern she moves and walks. She has not fallen. She turned quickly and developed sharp pain in the hip area. Exam Limited By: No Limitations General Appearance: Alert, Moderate Distress Ears: Normal TMs Nose: Normal Inspection Throat/Mouth: Normal Inspection Head: Atraumatic Neck: Normal Inspection Respiratory/Chest: No Respiratory Distress Cardiovascular: Regular Rate, Rhythm GI/Abdominal: Soft, Non-Tender (Female) Exam: Deferred Rectal (Female) Exam: Deferred Extremities: Other (pt is tender in the left groin area, She is not real tender on the lateral hip capsule. She hurts when she walks but she did fairly well with a walker. ) Neurological: Alert, Oriented Course - Vital Signs Last Recorded V/S: Last Vital Signs Temp 37.6 C 03/10/18 18:52 Pulse 55 L 03/10/18 20:41 Resp 16 03/10/18 19:38 BP 122/51 L 03/10/18 20:41 Pulse Ox 94 L 03/10/18 20:41 - Orders/Labs/Meds Orders: Active Orders 24 hr Category Date Time Status Hip Min 2V or 3V w Pelvis Lt [CR] Stat Exams 03/10/18 18:46 Taken Hip wo Cont Lt [CT] Stat Exams 03/10/18 21:19 Taken UA W/MICROSCOPIC [URIN] Urgent Lab 03/10/18 19:51 Ordered Labs: Laboratory Tests 03/10/18 03/10/18 03/10/18 Range/Units 19:51 19:58 19:58 WBC 7.3 (4.5-11.0) K/uL RBC 4.54 (3.30-5.50) M/uL Hgb 12.5 (12.0-15.0) g/dL Hct 39.7 (36.0-48.0) % MCV 87 (80-98) fL MCH 28 (27-31) pg MCHC 32 (32-36) % Plt Count 178 (150-400) K/uL Neut % (Auto) 68 H (36-66) % Lymph % (Auto) 20 L (24-44) % [place] % (Auto) 9 H (2-6) % Eos % (Auto) 3 (2-4) % Baso % (Auto) 0 (0-1) % Sodium 139 L (140-148) mmol/L Potassium 4.2 (3.6-5.2) mmol/L Chloride 106 (100-108) mmol/L Carbon Dioxide 28 (21-32) mmol/L Anion Gap 9.2 (5.0-14.0) mmol/L BUN 16 (7-18) mg/dL Creatinine 0.8 (0.6-1.0) mg/dL Est Cr Clr Drug Dosing 42.97 mL/min Estimated GFR (MDRD) > 60 (>60) Glucose 102 (74-106) mg/dL Calcium 8.1 L (8.5-10.1) mg/dL Total Bilirubin 0.4 D (0.2-1.0) mg/dL AST 21 (15-37) U/L ALT 20 (12-78) U/L Alkaline Phosphatase 119 H (46-116) U/L C-Reactive Protein (0.0-0.3) mg/dL Total Protein 5.6 L (6.4-8.2) g/dL Albumin 2.8 L (3.4-5.0) g/dL Globulin 2.8 (2.3-3.5) g/dL Albumin/Globulin Ratio 1.0 L (1.2-2.2) Urine Color Yellow Urine Appearance Clear Urine pH 7.0 (4.5-8.0) Ur Specific [place] 1.015 (1.008-1.030) Urine Protein Negative (NEGATIVE) mg/dL Urine Glucose (UA) Normal (NEGATIVE) mg/dL Urine Ketones 15 H (NEGATIVE) mg/dL Urine Occult Blood Negative (NEGATIVE) Urine Nitrite Negative (NEGATIVE) Urine Bilirubin Negative (NEGATIVE) Urine Urobilinogen 1 (NORMAL) mg/dL Ur Leukocyte Esterase Negative (NEGATIVE) Urine RBC Not seen (0-5) Urine WBC 0-5 (0-5) Ur Epithelial Cells Few Amorphous Sediment Not seen Urine Bacteria Few Urine Mucus Not seen 03/10/18 Range/Units 19:58 WBC (4.5-11.0) K/uL RBC (3.30-5.50) M/uL Hgb (12.0-15.0) g/dL Hct (36.0-48.0) % MCV (80-98) fL MCH (27-31) pg MCHC (32-36) % Plt Count (150-400) K/uL Neut % (Auto) (36-66) % Lymph % (Auto) (24-44) % [place] % (Auto) (2-6) % Eos % (Auto) (2-4) % Baso % (Auto) (0-1) % Sodium (140-148) mmol/L Potassium (3.6-5.2) mmol/L Chloride (100-108) mmol/L Carbon Dioxide (21-32) mmol/L Anion Gap (5.0-14.0) mmol/L BUN (7-18) mg/dL Creatinine (0.6-1.0) mg/dL Est Cr Clr Drug Dosing mL/min Estimated GFR (MDRD) (>60) Glucose (74-106) mg/dL Calcium (8.5-10.1) mg/dL Total Bilirubin (0.2-1.0) mg/dL AST (15-37) U/L ALT (12-78) U/L Alkaline Phosphatase (46-116) U/L C-Reactive Protein 0.26 (0.0-0.3) mg/dL Total Protein (6.4-8.2) g/dL Albumin (3.4-5.0) g/dL Globulin (2.3-3.5) g/dL Albumin/Globulin Ratio (1.2-2.2) Urine Color Urine Appearance Urine pH (4.5-8.0) Ur Specific [place] (1.008-1.030) Urine Protein (NEGATIVE) mg/dL Urine Glucose (UA) (NEGATIVE) mg/dL Urine Ketones (NEGATIVE) mg/dL Urine Occult Blood (NEGATIVE) Urine Nitrite (NEGATIVE) Urine Bilirubin (NEGATIVE) Urine Urobilinogen (NORMAL) mg/dL Ur Leukocyte Esterase (NEGATIVE) Urine RBC (0-5) Urine WBC (0-5) Ur Epithelial Cells Amorphous Sediment Urine Bacteria Urine Mucus Meds: Medications Discontinued Medications Generic Name Dose Route Start Last Admin Trade Name Freq PRN Reason Stop Dose Admin Hydrocodone Bitart/Acetaminophen 1 tab 03/10/18 18:45 03/10/18 18:49 [place] 325-5 Mg PO 03/10/18 18:46 1 tab ONETIME ONE Administration Naproxen 500 mg 03/10/18 20:13 03/10/18 20:30 Naprosyn PO 03/10/18 20:14 500 mg Q12H ONE Administration Oxycodone/Acetaminophen 1 tab 03/10/18 21:21 03/10/18 21:49 Percocet 325-5 Mg PO 03/10/18 21:22 1 tab ONETIME ONE Administration - Re-Assessments/Exams Free Text/Narrative Re-Assessment/Exam: 03/10/18 22:14 xrays were obtained of the left hip and pelvis and appeared to be neg. The pt was ambulated and because of her severe pain a cat scan was obtained and was neg. Departure - Departure Time of Disposition: 22:16 Disposition: Home, Self-Care 01 Condition: Fair Clinical Impression: Tendonitis of left hip - Discharge Information Referrals: PCP,None [Primary Care Provider] - Forms: ED Department Discharge Care Plan Goals: moist heat to the area, ambulate with a walker, naprosyn 500mg bid for the next 5 days, norco 5/325 q6h prn for pain #10, appt with Dr Jain or the nurse practitioner in 4-5 days. - My Orders Last 24 Hours: My Active Orders 03/10/18 18:46 Hip Min 2V or 3V w Pelvis Lt [CR] Stat 03/10/18 19:51 UA W/MICROSCOPIC [URIN] Urgent 03/10/18 21:19 Hip wo Cont Lt [CT] Stat - Assessment/Plan Last 24 Hours: My Active Orders 03/10/18 18:46 Hip Min 2V or 3V w Pelvis Lt [CR] Stat 03/10/18 19:51 UA W/MICROSCOPIC [URIN] Urgent 03/10/18 21:19 Hip wo Cont Lt [CT] Stat
[2018-03-10] MEDS ORDERED: Naproxen 250 MG Tab PO ONE (20:13)
[2018-03-10 20:42] VITALS: BP 122/51
[2018-03-10] MEDS ORDERED: Acetaminophen/oxyCODONE 325-5 MG Tab PO ONE (21:21)
--- NOTE | 2018-03-11 08:55 | CR ---
Hip Min 2V or 3V w Pelvis Lt CLINICAL HISTORY: Left hip pain FINDINGS: No acute fracture or dislocation is noted. No destructive changes are present. The joint sp aces are moderately narrowed bilaterally. There is some acetabular spurring. Impression: Osteophytic changes in both hips No fracture or subluxation Incidental note of some spurring off the left anterior superior iliac spine
== END 2018-03-10 22:54 | disposition home or self-care (01) ==
LOC: JP.ED 18:01
DX: M76.9 Unspecified enthesopathy, lower limb, excluding foot (principal); I10 Essential (primary) hypertension; Z91.040 Latex allergy status; Z88.5 Allergy status to narcotic agent; Z79.899 Other long term (current) drug therapy; Z79.82 Long term (current) use of aspirin
CPT/HCPCS: 36415; 73502-26-LT; 73502-LT; 73700-LT; 80053; 81001; 85025; 86140; 99284-25; A9270-GY

== ENCOUNTER 2019-12-06 11:10 | Emergency (ER) | payer MEDICARE, MEDICAID ==
[2019-12-06] MEDS ORDERED: LORazepam 1 MG Tab PO ONE (11:57)
[2019-12-06] MEDS ORDERED: Ondansetron 4 MG Tab.DIS PO ONE (12:06)
--- NOTE | 2019-12-06 12:09 | EDM.PDOC ---
ED HPI GENERAL MEDICAL PROBLEM - General Chief Complaint: General Stated Complaint: WEAKNESS,DIARRHEA,DIZZY Time Seen by Provider: 12/06/19 12:04 Source of Information: Reports: Patient History Limitations: Reports: No Limitations - History of Present Illness INITIAL COMMENTS - FREE TEXT/NARRATIVE: yamilka had diarrhea for the past month. She has at leaast 4-5 stools daily. Sometimes this is very lite in color. Onset: Gradual, Other ( This has been going on for 1 month. ) Duration: Hour(s): Location: Reports: Abdomen Associated Symptoms: Reports: No Other Symptoms - Related Data Allergies Allergy/AdvReac Type Severity Reaction Status Date / Time adhesive tape Allergy Mild Rash Verified 09/10/18 08:01 latex Allergy Rash Verified 09/10/18 08:01 codeine AdvReac Hallucinati Verified 09/10/18 08:01 ons Home Meds: Home Meds Aspirin [Halfprin] 81 mg PO DAILY 07/20/13 [History] Isosorbide Mononitrate [Imdur] 30 mg PO DAILY 07/20/13 [History] Metoprolol Tartrate 25 mg PO DAILY 07/20/13 [History] Calcium Citrate/Vitamin D2 [Calcium Citrate with Vit D] 1 tab PO DAILY 07/26/13 [History] Cyanocobalamin (Vitamin B-12) [Vitamin B-12] 1,000 mcg SL ASDIRECTED 07/26/13 [ History] Multivitamin [Multi-Vitamin Daily] 1 tab PO DAILY 07/26/13 [History] Nitroglycerin [Nitrostat] 0.4 mg SL ASDIRECTED PRN 07/26/13 [History] Venlafaxine [Effexor XR] 75 mg PO DAILY 01/09/15 [History] Vitamin B Complex [B-100 Complex] 1 each PO DAILY 01/09/15 [History] traZODone HCl [Trazodone HCl] 300 mg PO BEDTIME 01/09/15 [History] Amitriptyline [Elavil] 200 mg PO BEDTIME 07/01/16 [History] Cholecalciferol (Vitamin D3) [Vitamin D3] 1,000 units PO DAILY 07/01/16 [History ] Simvastatin [Zocor] 20 mg PO DAILY 07/01/16 [History] Zolpidem [Ambien] 5 mg PO BEDTIME PRN 07/01/16 [History] Gabapentin [Neurontin] 100 mg PO TID PRN 03/10/18 [History] Ibuprofen [Motrin] 600 mg PO Q6H PRN 03/10/18 [History] Pyridoxine HCl [Vitamin B-6] 50 mg PO DAILY 03/10/18 [History] Acetaminophen/HYDROcodone [[place] 325-5 MG] 1 tab PO DAILY 09/09/18 [History] Fluticasone Propionate [Flonase] 2 spray NS DAILY 09/09/18 [History] Naproxen 500 mg PO DAILY 09/09/18 [History] Omeprazole 20 mg PO DAILY 09/09/18 [History] methocarbamoL [Robaxin] 2 tab PO QID PRN 09/09/18 [History] Past Medical History HEENT History: Reports: Cataract, Impaired Vision Cardiovascular History: Reports: CAD, Hypertension, [place], Other (See Below) Other Cardiovascular History: dyslipidemia venous insufficiency Gastrointestinal History: Reports: Cholelithiasis, Colon Polyp Genitourinary History: Reports: Other (See Below) Other Genitourinary History: 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 Endocrine/Metabolic History: Reports: Obesity/BMI 30+ Hematologic History: Reports: Anemia - Infectious Disease History Infectious Disease History: Reports: Chicken Pox, Measles, Mumps - Past Surgical History Head Surgeries/Procedures: Reports: None HEENT Surgical History: Reports: Cataract Surgery Cardiovascular Surgical History: Reports: Coronary Artery Stent GI Surgical History: Reports: Appendectomy, Bariatric Procedure, Cholecystectomy , Colonoscopy, EGD Female Surgical History: Reports: Hysterectomy Endocrine Surgical History: Reports: None Neurological Surgical History: Reports: None Musculoskeletal Surgical History: Reports: Knee Replacement, ORIF Social & Family History - Family History Family Medical History: Noncontributory - Tobacco Use Smoking Status *Q: Never Smoker - Caffeine Use Caffeine Use: Reports: Soda - Recreational Drug Use Recreational Drug Use: No ED ROS GENERAL - Review of Systems Review Of Systems: See Below Constitutional: Reports: No Symptoms HEENT: Reports: No Symptoms Respiratory: Reports: No Symptoms Cardiovascular: Reports: No Symptoms Endocrine: Reports: Fatigue GI/Abdominal: Reports: Diarrhea, Other (pt has 5-6 stools daily. She states at times she passes some very lit chalky material that come with the stool. ) : Reports: No Symptoms, Incontinence Musculoskeletal: Reports: No Symptoms Skin: Reports: No Symptoms Neurological: Reports: No Symptoms ED EXAM, GENERAL - Physical Exam Exam: See Below Free Text/Narrative:: pt arrived with a history of 1 monthes worth of diarrhea. She is having 4-5 stools daily. Pt is not vomiting. Exam Limited By: No Limitations General Appearance: Alert, Anxious, Mild Distress Ears: Normal TMs Nose: Normal Inspection Throat/Mouth: Normal Inspection Head: Atraumatic Neck: Normal Inspection Respiratory/Chest: No Respiratory Distress Cardiovascular: Regular Rate, Rhythm GI/Abdominal: Soft, Non-Tender, Other ( diffuse tenderness) (Female) Exam: Deferred Rectal (Female) Exam: Deferred Back Exam: Normal Inspection Extremities: Normal Inspection Neurological: Alert, Oriented, Normal Cognition Psychiatric: Anxious Course - Vital Signs Last Recorded V/S: Last Vital Signs Temp 36.1 C 12/06/19 15:17 Pulse 74 12/06/19 17:04 Resp 16 12/06/19 15:17 BP 129/61 12/06/19 17:04 Pulse Ox 95 12/06/19 15:17 - Orders/Labs/Meds Orders: Active Orders 24 hr Category Date Time Status EKG Documentation Completion [RC] ASDIRECTED Care 12/06/19 12:53 Active Sodium Chloride 0.9% [Normal Saline] 1,000 ml Med 12/06/19 13:45 Active IV ASDIRECTED Sodium Chloride 0.9% [Normal Saline] 1,000 ml Med 12/06/19 16:00 Active IV ASDIRECTED EKG 12 Lead [EK] Routine Ther 12/06/19 12:53 Ordered Medication Orders Sodium Chloride (Normal Saline) 1,000 mls @ 999 mls/hr IV ASDIRECTED BETO Last Admin: 12/06/19 14:11 Dose: 999 mls/hr Sodium Chloride (Normal Saline) 1,000 mls @ 999 mls/hr IV ASDIRECTED BETO Last Admin: 12/06/19 16:14 Dose: 999 mls/hr Labs: Laboratory Tests 03/02/20 03/02/20 03/02/20 Range/Units 12:04 12:14 12:14 WBC 5.6 (4.5-11.0) K/uL RBC 4.83 (3.30-5.50) M/uL Hgb 13.7 (12.0-15.0) g/dL Hct 43.6 (36.0-48.0) % MCV 90 (80-98) fL MCH 28 (27-31) pg MCHC 31 L (32-36) % Plt Count 161 (150-400) K/uL Neut % (Auto) 55 (36-66) % Lymph % (Auto) 31 (24-44) % [place] % (Auto) 8 H (2-6) % Eos % (Auto) 6 H (2-4) % Baso % (Auto) 0 (0-1) % Sodium 143 (140-148) mmol/L Potassium 4.7 (3.6-5.2) mmol/L Chloride 108 (100-108) mmol/L Carbon Dioxide 31 (21-32) mmol/L Anion Gap 4.2 L (5.0-14.0) mmol/L BUN 10 (7-18) mg/dL Creatinine 0.8 (0.6-1.0) mg/dL Est Cr Clr Drug Dosing 41.63 mL/min Estimated GFR (MDRD) > 60 (>60) Glucose 81 (74-106) mg/dL Calcium 8.1 L (8.5-10.1) mg/dL Total Bilirubin 0.4 (0.2-1.0) mg/dL AST 28 (15-37) U/L ALT 22 (12-78) U/L Alkaline Phosphatase 126 H (46-116) U/L C-Reactive Protein 0.09 (0.0-0.3) mg/dL Total Protein 6.0 L (6.4-8.2) g/dL Albumin 2.7 L (3.4-5.0) g/dL Globulin 3.3 (2.3-3.5) g/dL Albumin/Globulin Ratio 0.8 L (1.2-2.2) Urine Color (YELLOW) Urine Appearance (CLEAR) Urine pH (5.0-8.0) Ur Specific [place] (1.008-1.030) Urine Protein (NEGATIVE) mg/dL Urine Glucose (UA) (NEGATIVE) mg/dL Urine Ketones (NEGATIVE) mg/dL Urine Occult Blood (NEGATIVE) Urine Nitrite (NEGATIVE) Urine Bilirubin (NEGATIVE) Urine Urobilinogen (0.2-1.0) EU/dL Ur Leukocyte Esterase (NEGATIVE) Urine RBC (0-5) Urine WBC (0-5) Ur Epithelial Cells Amorphous Sediment Urine Bacteria Urine Mucus 12/06/19 Range/Units 13:00 WBC (4.5-11.0) K/uL RBC (3.30-5.50) M/uL Hgb (12.0-15.0) g/dL Hct (36.0-48.0) % MCV (80-98) fL MCH (27-31) pg MCHC (32-36) % Plt Count (150-400) K/uL Neut % (Auto) (36-66) % Lymph % (Auto) (24-44) % [place] % (Auto) (2-6) % Eos % (Auto) (2-4) % Baso % (Auto) (0-1) % Sodium (140-148) mmol/L Potassium (3.6-5.2) mmol/L Chloride (100-108) mmol/L Carbon Dioxide (21-32) mmol/L Anion Gap (5.0-14.0) mmol/L BUN (7-18) mg/dL Creatinine (0.6-1.0) mg/dL Est Cr Clr Drug Dosing mL/min Estimated GFR (MDRD) (>60) Glucose (74-106) mg/dL Calcium (8.5-10.1) mg/dL Total Bilirubin (0.2-1.0) mg/dL AST (15-37) U/L ALT (12-78) U/L Alkaline Phosphatase (46-116) U/L C-Reactive Protein (0.0-0.3) mg/dL Total Protein (6.4-8.2) g/dL Albumin (3.4-5.0) g/dL Globulin (2.3-3.5) g/dL Albumin/Globulin Ratio (1.2-2.2) Urine Color Yellow (YELLOW) Urine Appearance Clear (CLEAR) Urine pH 7.5 (5.0-8.0) Ur Specific [place] 1.020 (1.008-1.030) Urine Protein Negative (NEGATIVE) mg/dL Urine Glucose (UA) Negative (NEGATIVE) mg/dL Urine Ketones Negative (NEGATIVE) mg/dL Urine Occult Blood Negative (NEGATIVE) Urine Nitrite Negative (NEGATIVE) Urine Bilirubin Negative (NEGATIVE) Urine Urobilinogen 1.0 (0.2-1.0) EU/dL Ur Leukocyte Esterase Small H (NEGATIVE) Urine RBC 0-5 (0-5) Urine WBC 5-10 H (0-5) Ur Epithelial Cells Not seen Amorphous Sediment Not seen Urine Bacteria Not seen Urine Mucus Few Meds: Medications Generic Name Dose Route Start Last Admin Trade Name Freq PRN Reason Stop Dose Admin Sodium Chloride 1,000 mls @ 999 mls/hr 12/06/19 13:45 12/06/19 14:11 Normal Saline IV 999 mls/hr ASDIRECTED BETO Administration Sodium Chloride 1,000 mls @ 999 mls/hr 12/06/19 16:00 12/06/19 16:14 Normal Saline IV 999 mls/hr ASDIRECTED BETO Administration Discontinued Medications Generic Name Dose Route Start Last Admin Trade Name Freq PRN Reason Stop Dose Admin Lorazepam 1 mg 12/06/19 11:57 12/06/19 12:04 Ativan PO 12/06/19 11:58 1 mg ONETIME ONE Administration Ondansetron HCl 4 mg 12/06/19 12:06 Zofran Odt PO 12/06/19 12:07 ONETIME ONE - Re-Assessments/Exams Free Text/Narrative Re-Assessment/Exam: 12/06/19 17:59 pt had a neg clost diff. She was dehydrated and was given 2 liters of fluid. at this point the pt should have a colonoscopy Departure - Departure Time of Disposition: 18:00 Disposition: Home, Self-Care 01 Condition: Fair Clinical Impression: Diarrhea, Dehydration - Discharge Information Referrals: PCP,None [Primary Care Provider] - Forms: ED Department Discharge Care Plan Goals: push fluids, rtc for colonoscopy, immodium 1 tab after each loose stool up to 4- 5 doses daily. Sepsis Event Note - Focused Exam Vital Signs: Vital Signs Temp Pulse Resp BP Pulse Ox 12/06/19 17:04 74 129/61 12/06/19 15:18 72 137/77 12/06/19 15:17 36.1 C 79 16 124/72 95 12/06/19 14:10 79 124/72 95 12/06/19 13:59 89 128/76 95 12/06/19 13:29 86 16 121/68 94 L 12/06/19 12:59 87 16 135/83 96 12/06/19 12:29 88 155/93 H 97 12/06/19 11:59 89 17 159/82 H 96 12/06/19 11:33 36.1 C 89 16 147/83 H 97 Date Exam was Performed: 12/06/19 Time Exam was Performed: 17:51 - My Orders Last 24 Hours: My Active Orders 12/06/19 12:53 EKG Documentation Completion [RC] ASDIRECTED EKG 12 Lead [EK] Routine 12/06/19 13:45 Sodium Chloride 0.9% [Normal Saline] 1,000 ml IV ASDIRECTED 12/06/19 16:00 Sodium Chloride 0.9% [Normal Saline] 1,000 ml IV ASDIRECTED - Assessment/Plan Last 24 Hours: My Active Orders 12/06/19 12:53 EKG Documentation Completion [RC] ASDIRECTED EKG 12 Lead [EK] Routine 12/06/19 13:45 Sodium Chloride 0.9% [Normal Saline] 1,000 ml IV ASDIRECTED 12/06/19 16:00 Sodium Chloride 0.9% [Normal Saline] 1,000 ml IV ASDIRECTED
[2019-12-06] MEDS ORDERED: Sodium Chloride 0.9% 1,000 ML IV SCH ×2 (13:45→16:00)
[2019-12-06 17:55] VITALS: BP 183/93; PULSE 89
== END 2019-12-06 18:21 | disposition home or self-care (01) ==
LOC: JP.ED 11:10
DX: E86.0 Dehydration (principal); R19.7 Diarrhea, unspecified; I10 Essential (primary) hypertension; I25.10 Atherosclerotic heart disease of native coronary artery without angina pectoris; I25.2 Old myocardial infarction; M19.90 Unspecified osteoarthritis, unspecified site; E66.9 Obesity, unspecified; Z79.899 Other long term (current) drug therapy; Z98.49 Cataract extraction status, unspecified eye; Z90.49 Acquired absence of other specified parts of digestive tract; Z90.710 Acquired absence of both cervix and uterus; Z91.09 Other allergy status, other than to drugs and biological substances; Z91.040 Latex allergy status; Z88.5 Allergy status to narcotic agent; Z79.82 Long term (current) use of aspirin
CPT/HCPCS: 36415; 80053; 81001; 85025; 86140; 87493; 93005; 93010; 96360; 96361; 99285; A9270; J7030; 99283

== ENCOUNTER 2019-12-10 06:47 | Day surgery (SDC) | payer MEDICARE, MEDICAID ==
[~2019-12-10 06:47] MED LIST: Midazolam 1 MG/ML 2 ML SDV ONE; Propofol 200 MG/20 ML SDV ONE; fentaNYL 100 MCG/2 ML SDV ONE
[2019-12-10] MEDS ORDERED: Sodium Chloride 0.9% 1,000 ML IV SCH (07:30)
[2019-12-10] MEDS ORDERED: Propofol 200 MG/20 ML SDV ONE (08:08)
[2019-12-10 09:45] VITALS: BP 151/70; PULSE 54
--- NOTE | 2019-12-10 14:13 | OR ---
DATE OF PROCEDURE: 12/10/2019 SURGEON: Zacarias Carter MD PROCEDURE: Colonoscopy. FINDINGS: 1. Transverse colon polyp, approximately 5 mm, completely removed using hot snare device. 2. Random biopsies performed of ascending colon and rectum due to chronic diarrhea. COMPLICATIONS: None. CHAR PULLER: None. ANESTHESIA: MAC. PREOPERATIVE DIAGNOSES: History of diarrhea and history of polyps. POSTOPERATIVE DIAGNOSES: History of diarrhea and history of polyps. RISKS: Risks, benefits, alternatives, and limitations including, but not limited to infection, bleeding, and perforation were explained to the patient, who wished to proceed. PROCEDURE IN DETAIL: The patient was placed in left lateral decubitus position. Digital rectal exam was performed without abnormality. The scope was introduced and advanced atraumatically to the ileocecal valve. A photo was taken of this. Scope was brought back through the ascending, transverse, descending colon, and retroflexed. No evidence of obvious colitis. The patient did have diverticulosis but described as very mild, but random biopsies were performed. The aforementioned polyp was identified and completely removed using the snare. No abnormalities on retroflexion. The patient tolerated the procedure well. Zacarias Carter MD /[id number]
== END 2019-12-10 10:52 | disposition home or self-care (01) ==
LOC: JP.SDS 06:47
PROVIDERS: ATTEND Surgery
DX: D12.3 Benign neoplasm of transverse colon (principal); K57.30 Diverticulosis of large intestine without perforation or abscess without bleeding; I10 Essential (primary) hypertension; I25.10 Atherosclerotic heart disease of native coronary artery without angina pectoris; Z86.010 Personal history of colon polyps; Z88.5 Allergy status to narcotic agent; Z91.040 Latex allergy status; Z91.048 Other nonmedicinal substance allergy status
CPT/HCPCS: 45380; 45385; J2250; J2704; J3010; J7030; 88305

== ENCOUNTER 2020-03-13 16:14 | Emergency (ER) | payer MEDICARE, MEDICAID ==
--- NOTE | 2020-03-13 16:53 | EDM.PDOC ---
ED HPI GENERAL MEDICAL PROBLEM - General Chief Complaint: Gastrointestinal Problem Stated Complaint: WEAK,VOMITING Time Seen by Provider: 03/13/20 16:40 Source of Information: Reports: Patient History Limitations: Reports: No Limitations - History of Present Illness INITIAL COMMENTS - FREE TEXT/NARRATIVE: 79-year-old female with nausea and vomiting and tremor for the past 6 to 8 hours. She has had 2 bowel movements today, does not have abdominal pain, denies fevers chills chest pain or shortness of breath. Her main complaint is persistent nausea with emesis and dry heaving. She denies any back pain. She has not been exposed anyone with flu or similar symptoms. She is extremely anxious. She does have a history of numerous abdominal surgeries including weight loss surgery. Onset: Sudden Duration: Hour(s): (Symptoms started fairly suddenly this morning) Associated Symptoms: Reports: Loss of Appetite, Malaise, Nausea/Vomiting. Denies: Chest Pain, Cough, Fever/Chills, Shortness of Breath - Related Data Allergies Allergy/AdvReac Type Severity Reaction Status Date / Time adhesive tape Allergy Mild Rash Verified 03/13/20 17:19 latex Allergy Rash Verified 03/13/20 17:19 codeine AdvReac Hallucinati Verified 03/13/20 17:19 ons Home Meds: Home Meds Aspirin [Halfprin] 81 mg PO DAILY 07/20/13 [History] Metoprolol Tartrate 25 mg PO DAILY 07/20/13 [History] Nitroglycerin [Nitrostat] 0.4 mg SL ASDIRECTED PRN 07/26/13 [History] Venlafaxine [Effexor XR] 112.5 mg PO DAILY 01/09/15 [History] Vitamin B Complex [B-100 Complex] 1 each PO DAILY 01/09/15 [History] traZODone HCl [Trazodone HCl] 300 mg PO BEDTIME 01/09/15 [History] Cholecalciferol (Vitamin D3) [Vitamin D3] 1,000 units PO DAILY 07/01/16 [History ] Simvastatin [Zocor] 20 mg PO DAILY 07/01/16 [History] Zolpidem [Ambien] 5 mg PO BEDTIME PRN 07/01/16 [History] Gabapentin [Neurontin] 100 mg PO TID PRN 03/10/18 [History] Pyridoxine HCl [Vitamin B-6] 50 mg PO DAILY 03/10/18 [History] Fluticasone Propionate [Flonase] 2 spray NS DAILY 09/09/18 [History] methocarbamoL [Robaxin] 2 tab PO QID PRN 09/09/18 [History] Calcium Carbonate/Vitamin D3 [Calcium 600-Vit D3 500 Softgel] 1 tab PO DAILY 03/25 [History] Cerovite Advanced Formula 1 tab PO DAILY 12/10/19 [History] Fluorometholone [Fluorometholone 0.1% Ophth Susp] 1 drop EYEBOTH DAILY 12/10/19 [History] QUEtiapine Fumarate [Quetiapine Fumarate] 100 mg PO BEDTIME 12/10/19 [History] cycloSPORINE [Restasis] 1 each OP BID 12/10/19 [History] Past Medical History HEENT History: Reports: Cataract, Impaired Vision Cardiovascular History: Reports: CAD, Hypertension, [place], Other (See Below) Other Cardiovascular History: dyslipidemia venous insufficiency Gastrointestinal History: Reports: Cholelithiasis, Colon Polyp Genitourinary History: Reports: Other (See Below) Other Genitourinary History: 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 Endocrine/Metabolic History: Reports: Obesity/BMI 30+ Hematologic History: Reports: Anemia - Infectious Disease History Infectious Disease History: Reports: Chicken Pox, Measles, Mumps - Past Surgical History Head Surgeries/Procedures: Reports: None HEENT Surgical History: Reports: Cataract Surgery, Tonsillectomy Cardiovascular Surgical History: Reports: Coronary Artery Stent GI Surgical History: Reports: Appendectomy, Bariatric Procedure, Cholecystectomy , Colonoscopy, EGD, Hernia, Abdominal Female Surgical History: Reports: Hysterectomy Endocrine Surgical History: Reports: None Neurological Surgical History: Reports: None Musculoskeletal Surgical History: Reports: Knee Replacement, ORIF Social & Family History - Family History Family Medical History: Noncontributory - Caffeine Use Caffeine Use: Reports: Soda ED ROS GENERAL - Review of Systems Review Of Systems: See Below Constitutional: Reports: Malaise, Decreased Appetite. Denies: Fever, Chills HEENT: Reports: No Symptoms Respiratory: Denies: Shortness of Breath Cardiovascular: Denies: Chest Pain GI/Abdominal: Reports: Nausea, Vomiting. Denies: Abdominal Pain Skin: Reports: No Symptoms Neurological: Reports: Dizziness, Tremors (Generalized shakiness) Psychiatric: Reports: Anxiety ED EXAM, GI/ABD - Physical Exam Exam: See Below Text/Narrative:: Patient arrives extremely anxious, appears to be hyperventilating with an O2 saturation of 100%. Exam Limited By: No Limitations General Appearance: Alert, Anxious Eyes: Bilateral: Normal Appearance Head: Atraumatic Respiratory/Chest: No Respiratory Distress, Lungs Clear Cardiovascular: Regular Rate, Rhythm GI/Abdominal Exam: Normal Bowel Sounds, Soft, Non-Tender. No: Distended Extremities: Normal Inspection. No: Pedal Edema Neurological: Alert, Oriented Psychiatric: Anxious Course - Vital Signs Last Recorded V/S: Last Vital Signs Temp 97.8 F 03/13/20 17:28 Pulse 78 03/13/20 19:55 Resp 18 03/13/20 17:28 BP 153/85 H 03/13/20 19:55 Pulse Ox 93 L 03/13/20 19:55 - Orders/Labs/Meds Labs: Laboratory Tests 03/13/20 03/13/20 Range/Units 17:28 17:28 WBC 4.2 L (4.5-11.0) K/uL RBC 4.90 (3.30-5.50) M/uL Hgb 13.7 (12.0-15.0) g/dL Hct 43.8 (36.0-48.0) % MCV 89 (80-98) fL MCH 28 (27-31) pg MCHC 31 L (32-36) % Plt Count 171 (150-400) K/uL Neut % (Auto) 58 (36-66) % Lymph % (Auto) 29 (24-44) % [place] % (Auto) 9 H (2-6) % Eos % (Auto) 4 (2-4) % Baso % (Auto) 1 (0-1) % Sodium 143 (140-148) mmol/L Potassium 4.3 (3.6-5.2) mmol/L Chloride 106 (100-108) mmol/L Carbon Dioxide 28 (21-32) mmol/L Anion Gap 9.4 (5.0-14.0) mmol/L BUN 13 (7-18) mg/dL Creatinine 0.7 (0.6-1.0) mg/dL Est Cr Clr Drug Dosing 47.58 mL/min Estimated GFR (MDRD) > 60 (>60) Glucose 109 H (74-106) mg/dL Calcium 8.5 (8.5-10.1) mg/dL Total Bilirubin 0.5 (0.2-1.0) mg/dL AST 26 (15-37) U/L ALT 27 (12-78) U/L Alkaline Phosphatase 133 H (46-116) U/L Total Protein 6.4 (6.4-8.2) g/dL Albumin 3.1 L (3.4-5.0) g/dL Globulin 3.3 (2.3-3.5) g/dL Albumin/Globulin Ratio 0.9 L (1.2-2.2) Lipase 79 (73-393) U/L Meds: Medications Discontinued Medications Generic Name Dose Route Start Last Admin Trade Name Freq PRN Reason Stop Dose Admin Sodium Chloride 1,000 mls @ 1,000 mls/hr 03/13/20 17:00 03/13/20 17:56 Normal Saline IV 1,000 mls/hr ASDIRECTED BETO Administration Lorazepam 0.5 mg 03/13/20 16:49 03/13/20 17:54 Ativan IVPUSH 03/13/20 16:50 0.5 mg ONETIME ONE Administration Meclizine HCl 25 mg 03/13/20 19:04 03/13/20 19:08 Antivert PO 03/13/20 19:05 25 mg ONETIME ONE Administration Ondansetron HCl 4 mg 03/13/20 16:49 03/13/20 17:56 Zofran IVPUSH 03/13/20 16:50 4 mg ONETIME ONE Administration - Re-Assessments/Exams Free Text/Narrative Re-Assessment/Exam: 03/13/20 16:52 An IV will be started, she will be given 0.5 mg of IV Ativan and 4 mg of Zofran. 1 L of normal saline will be given, and a CBC, CMP and lipase checked. 03/13/20 18:35 All labs look reassuring, after the meds the patient's symptoms resolved. She will be discharged and encouraged to stay hydrated, and return if symptoms recur or she develops other concerns. Departure - Departure Time of Disposition: 20:18 Disposition: Home, Self-Care 01 Clinical Impression: Acute anxiety Nausea and vomiting Qualifiers: Vomiting type: unspecified Vomiting Intractability: non-intractable Qualified Code(s): R11.2 - Nausea with vomiting, unspecified - Discharge Information Instructions: Nausea and Vomiting, Adult, [id number] Referrals: PCP,None [Primary Care Provider] - Forms: ED Department Discharge Care Plan Goals: Increase diet and activity slowly as tolerated, and continue your regular medications. Return if symptoms recur and are persistent or you develop other concerns. Sepsis Event Note - Focused Exam Vital Signs: Vital Signs Pulse BP Pulse Ox 03/13/20 19:55 78 153/85 H 93 L Date Exam was Performed: 03/14/20 Time Exam was Performed: 07:05
[2020-03-13] MEDS: LORazepam 2 MG/ML SDV IVPUSH ONE (17:54)
[2020-03-13] MEDS: Ondansetron 4 MG/2 ML SDV IVPUSH ONE (17:56)
[2020-03-13] MEDS: Sodium Chloride 0.9% 1,000 ML IV SCH (17:56)
[2020-03-13] MEDS: Meclizine 25 MG Tab PO ONE (19:08)
[2020-03-13 19:55] VITALS: BP 153/85; PULSE 78
== END 2020-03-13 20:19 | disposition home or self-care (01) ==
LOC: JP.ED 16:14
DX: F41.9 Anxiety disorder, unspecified (principal); R11.2 Nausea with vomiting, unspecified; I25.10 Atherosclerotic heart disease of native coronary artery without angina pectoris; I10 Essential (primary) hypertension; I25.2 Old myocardial infarction; E78.5 Hyperlipidemia, unspecified; M06.9 Rheumatoid arthritis, unspecified; G62.9 Polyneuropathy, unspecified; F31.9 Bipolar disorder, unspecified; E66.9 Obesity, unspecified; Z68.34 Body mass index [BMI] 34.0-34.9, adult; Z91.048 Other nonmedicinal substance allergy status; Z91.040 Latex allergy status; Z88.5 Allergy status to narcotic agent; Z79.82 Long term (current) use of aspirin; Z79.899 Other long term (current) drug therapy
CPT/HCPCS: 36415; 80053; 83690; 85025; 96361; 96374; 96375; 99284; A9270; J2060; J2405; J7030

== ENCOUNTER 2020-03-14 19:56 | Observation (INO) | payer MEDICARE, MEDICAID ==
[2020-03-14] MEDS ORDERED: Sodium Chloride 0.9% 10 ML Syringe FLUSH PRN (20:16)
[2020-03-14] MEDS ORDERED: Ondansetron 4 MG/2 ML SDV IVPUSH ONE (20:16)
[2020-03-14] MEDS ORDERED: LORazepam 2 MG/ML SDV IVPUSH ONE (20:17)
[2020-03-14] MEDS ORDERED: Sodium Chloride 0.9% 1,000 ML IV ONE (20:18)
[2020-03-14] MEDS ORDERED: Venlafaxine 37.5 MG Cap.ER PO ONE (22:24)
[2020-03-14] MEDS ORDERED: Venlafaxine 75 MG Cap.ER PO SCH (22:30)
--- NOTE | 2020-03-14 22:54 | CRLCT ---
INDICATION: Nausea and vomiting TECHNIQUE: CT abdomen and pelvis without contrast. COMPARISON: 08/12/2018 FINDINGS: Lower chest: Unremarkable. Liver: Unremarkable. Spleen: Unremarkable. Pancreas: Unremarkable. Gallbladder and bile ducts: Cholecystectomy. Kidneys: Stable coarsely calcified lesion mid zone left kidney. Small nonobstructing calculi left kidney. Adrenal glands: Unremarkable. GI tract: History of gastric bypass surgery. Colonic fecal retention. Appendix is not definitively demonstrated. Vascular structures: Unremarkable. Lymph nodes: Unremarkable. Miscellaneous: Unremarkable. No free air or significant free fluid. Pelvic Organs: Diffuse urinary bladder wall thickening. Bones: Unremarkable for age. IMPRESSION: Colonic fecal retention. History of gastric bypass surgery. Cholecystectomy. Stable coarsely calcified lesion midpole left kidney. Small nonobstructing calculi left kidney. No hydronephrosis. Diffuse urinary bladder wall thickening. Dictated by Cristian Beltran MD @ 03/14/2020 10:52:25 PM Please note that all CT scans at this facility use dose modulation, iterative reconstruction, and/or weight-based dosing when appropriate to reduce radiation dose to as low as reasonably achievable. Dictated by: Cristian Beltran MD @ 03/14/2020 22:52:30 (Electronically Signed)
--- NOTE | 2020-03-14 23:08 | EDM.PDOC ---
ED HPI GENERAL MEDICAL PROBLEM - General Chief Complaint: General Stated Complaint: MED[facility] Time Seen by Provider: 03/14/20 20:31 Source of Information: Reports: Patient, Other ([employer] worker) History Limitations: Reports: No Limitations - History of Present Illness INITIAL COMMENTS - FREE TEXT/NARRATIVE: chief complaint: nausea and vomiting x 2 days This is a 79 year old female present to the ER for the second time in two days with concerns of nausea and vomiting x 2 days. now feeling weak. reports tried to eat yogurt with cottage cheese - vomiting, then tried baloney sandwich at dinner time then had nausea and vomiting. decided to return to ER for evaluation. [employer] worker called into the ER to state Ms. Alcaraz has not been taking her Effexor or Seroquel for several days due to not following up in primary care clinic. Onset: Gradual Onset Date: 03/13/20 Duration: Day(s):, Getting Worse Location: Reports: Abdomen Quality: Reports: Other (nausea and vomiting.) Improves with: Reports: None Worsens with: Reports: Eating Associated Symptoms: Reports: Loss of Appetite, Malaise, Nausea/Vomiting, Weakness Chest Pain Score (Numeric/FACES): 6 - Related Data Allergies Allergy/AdvReac Type Severity Reaction Status Date / Time adhesive tape Allergy Mild Rash Verified 03/13/20 17:19 latex Allergy Rash Verified 03/13/20 17:19 codeine AdvReac Hallucinati Verified 03/13/20 17:19 ons Home Meds: Home Meds Aspirin [Halfprin] 81 mg PO DAILY 07/20/13 [History] Metoprolol Tartrate 25 mg PO DAILY 07/20/13 [History] Nitroglycerin [Nitrostat] 0.4 mg SL ASDIRECTED PRN 07/26/13 [History] Venlafaxine [Effexor XR] 112.5 mg PO DAILY 01/09/15 [History] Vitamin B Complex [B-100 Complex] 1 each PO DAILY 01/09/15 [History] traZODone HCl [Trazodone HCl] 300 mg PO BEDTIME 01/09/15 [History] Cholecalciferol (Vitamin D3) [Vitamin D3] 1,000 units PO DAILY 07/01/16 [History ] Simvastatin [Zocor] 20 mg PO DAILY 07/01/16 [History] Zolpidem [Ambien] 5 mg PO BEDTIME PRN 07/01/16 [History] Gabapentin [Neurontin] 100 mg PO TID PRN 03/10/18 [History] Pyridoxine HCl [Vitamin B-6] 50 mg PO DAILY 03/10/18 [History] Fluticasone Propionate [Flonase] 2 spray NS DAILY 09/09/18 [History] methocarbamoL [Robaxin] 2 tab PO QID PRN 09/09/18 [History] Calcium Carbonate/Vitamin D3 [Calcium 600-Vit D3 500 Softgel] 1 tab PO DAILY 03/25 [History] Cerovite Advanced Formula 1 tab PO DAILY 12/10/19 [History] Fluorometholone [Fluorometholone 0.1% Ophth Susp] 1 drop EYEBOTH DAILY 12/10/19 [History] QUEtiapine Fumarate [Quetiapine Fumarate] 100 mg PO BEDTIME 12/10/19 [History] cycloSPORINE [Restasis] 1 each OP BID 12/10/19 [History] Past Medical History HEENT History: Reports: Cataract, Impaired Vision Cardiovascular History: Reports: CAD, Hypertension, [place], Other (See Below) Other Cardiovascular History: dyslipidemia venous insufficiency Gastrointestinal History: Reports: Cholelithiasis, Colon Polyp Genitourinary History: Reports: Other (See Below) Other Genitourinary History: urgency CLOTH BALER History: Reports: Dysfunctional Uterine Bleeding, Musculoskeletal History: Reports: Arthritis, RA, Other (See Below) Other Musculoskeletal History: recent back pain Neurological History: Reports: Neuropathy, Peripheral Psychiatric History: Reports: Anxiety, Bipolar, Depression, Other (See Below) Other Psychiatric History: memory loss. Endocrine/Metabolic History: Reports: Obesity/BMI 30+ Hematologic History: Reports: Anemia - Infectious Disease History Infectious Disease History: Reports: Chicken Pox - Past Surgical History Head Surgeries/Procedures: Reports: None HEENT Surgical History: Reports: Cataract Surgery, Tonsillectomy Cardiovascular Surgical History: Reports: Coronary Artery Stent GI Surgical History: Reports: Appendectomy, Bariatric Procedure, Cholecystectomy , Colonoscopy, EGD, Hernia, Abdominal Female Surgical History: Reports: Hysterectomy Endocrine Surgical History: Reports: None Neurological Surgical History: Reports: None Musculoskeletal Surgical History: Reports: Knee Replacement, ORIF Social & Family History - Family History Family Medical History: Noncontributory - Tobacco Use Smoking Status *Q: Never Smoker - Caffeine Use Caffeine Use: Reports: Soda - Recreational Drug Use Recreational Drug Use: No ED ROS GENERAL - Review of Systems Review Of Systems: See Below Constitutional: Reports: Weakness, Decreased Appetite HEENT: Reports: No Symptoms Respiratory: Reports: No Symptoms Cardiovascular: Reports: No Symptoms Endocrine: Reports: No Symptoms GI/Abdominal: Reports: Diarrhea, Decreased Appetite, Nausea, Vomiting : Reports: No Symptoms Musculoskeletal: Reports: No Symptoms Skin: Reports: No Symptoms Neurological: Reports: No Symptoms Psychiatric: Reports: No Symptoms Hematologic/Lymphatic: Reports: No Symptoms Immunologic: Reports: No Symptoms ED EXAM, GENERAL - Physical Exam Exam: See Below Exam Limited By: No Limitations General Appearance: Alert, WD/WN, Mild Distress Eye Exam: Bilateral Eye: EOMI, PERRL Ears: Normal External Exam, Normal Canal, Hearing Grossly Normal, Normal TMs Ear Exam: Bilateral Ear: Auricle Normal, Canal Normal, TM normal Nose: Normal Inspection, Normal Mucosa, No Blood Throat/Mouth: Normal Inspection, Normal Lips, Normal Teeth, Normal Gums, Normal Oropharynx, Normal Voice, No Airway Compromise Head: Atraumatic, Normocephalic Neck: Normal Inspection, Supple, Non-Tender, Full Range of Motion Respiratory/Chest: No Respiratory Distress, Lungs Clear, Normal Breath Sounds, No Accessory Muscle Use, Chest Non-Tender Cardiovascular: Normal Peripheral Pulses, Regular Rate, Rhythm, No Edema, No Gallop, No JVD, No Murmur, No Rub GI/Abdominal: Normal Bowel Sounds, Soft, No Distention, Other (multi abdominal scars) (Female) Exam: Normal External Exam, Deferred Rectal (Female) Exam: Deferred Back Exam: Normal Inspection, Full Range of Motion Extremities: Normal Inspection, Normal Range of Motion, Non-Tender, No Pedal Edema, Normal Capillary Refill Neurological: Alert, Oriented, No Motor/Sensory Deficits Psychiatric: Anxious, Tearful Skin Exam: Warm, Dry, Intact, Normal Color, No Rash Lymphatic: No Adenopathy Course - Vital Signs Last Recorded V/S: Last Vital Signs Temp 35.6 C L 03/14/20 22:55 Pulse 71 03/14/20 22:55 Resp 10 L 03/14/20 22:55 BP 147/53 H 03/14/20 22:55 Pulse Ox 95 03/15/20 01:00 - Orders/Labs/Meds Orders: Active Orders 24 hr Category Date Time Status Peripheral IV Care [RC] . DIRECTED Care 03/14/20 20:16 Active Abdomen 2V AP Flat Upright [CR] Stat Exams 03/14/20 20:09 Taken INFLUENZA A+B AG, DFA W/RFLX Urgent Lab 03/14/20 20:21 Received QUEtiapine [SEROqueL] Med 03/15/20 00:00 Active 100 mg PO BEDTIME Sodium Chloride 0.9% [Saline Flush] Med 03/14/20 20:16 Active 10 ml FLUSH ASDIRECTED PRN Peripheral IV Insertion Adult [OM.PC] Routine Oth 03/14/20 20:16 Ordered Medication Orders Acetaminophen (Tylenol) 650 mg PO Q4H PRN PRN Reason: Pain (Mild 1-3)/fever Aspirin (Halfprin) 81 mg PO DAILY [facility] Bisacodyl (Dulcolax) 5 mg PO DAILY PRN PRN Reason: Constipation Docusate Sodium (Colace) 100 mg PO BID [facility]O Gabapentin (Neurontin) 100 mg PO TID PRN PRN Reason: Pain (moderate 4-6) Sodium Chloride (Normal Saline) 1,000 mls @ 125 mls/hr IV ASDIRECTED [facility] Ibuprofen (Motrin) 600 mg PO Q6H PRN PRN Reason: Pain/Fever Lorazepam (Ativan) 1 mg IV Q6H PRN PRN Reason: Nausea/Vomiting Metoprolol Tartrate (Lopressor) 25 mg PO DAILY [facility] Nitroglycerin (Nitrostat) 0.4 mg SL ASDIRECTED PRN PRN Reason: Chest Pain Non-Formulary Medication (Pyridoxine Hcl [Vitamin B-6]) 50 mg PO DAILY [facility] Non-Formulary Medication (Trazodone Hcl [Trazodone Hcl]) 300 mg PO BEDTIME [facility] Non-Formulary Medication (Venlafaxine [Effexor Xr]) 112.5 mg PO DAILY [facility] Ondansetron HCl (Zofran Odt) 4 mg PO Q6H PRN PRN Reason: Nausea able to take PO Pantoprazole Sodium (Protonix Iv) 40 mg IV ONETIME ONE Stop: 03/15/20 00:44 Quetiapine Fumarate (Seroquel) 100 mg PO BEDTIME [facility]O Last Admin: 03/15/20 00:45 Dose: 100 mg Quetiapine Fumarate (Seroquel) 100 mg PO BEDTIME [facility] Sodium Chloride (Saline Flush) 10 ml FLUSH ASDIRECTED PRN PRN Reason: Keep Vein Open Last Admin: 03/14/20 21:04 Dose: 10 ml Venlafaxine HCl (Effexor Xr) 37.5 mg PO ONETIME ONE Stop: 03/15/20 00:57 Venlafaxine HCl (Effexor Xr) 75 mg PO ONETIME ONE Stop: 03/15/20 00:58 Labs: Laboratory Tests 03/14/20 Range/Units 21:25 Lactic Acid 1.1 (0.4-2.0) mmol/L Meds: Medications Generic Name Dose Route Start Last Admin Trade Name Freq PRN Reason Stop Dose Admin Acetaminophen 650 mg 03/15/20 00:43 Tylenol PO Q4H PRN Pain (Mild 1-3)/fever Aspirin 81 mg 03/15/20 09:00 Halfprin PO DAILY [facility] Bisacodyl 5 mg 03/15/20 00:43 Dulcolax PO DAILY PRN Constipation Docusate Sodium 100 mg 03/15/20 09:00 Colace PO BID [facility] Gabapentin 100 mg 03/15/20 00:43 Neurontin PO TID PRN Pain (moderate 4-6) Sodium Chloride 1,000 mls @ 125 mls/hr 03/15/20 00:43 Normal Saline IV ASDIRECTED [facility] Ibuprofen 600 mg 03/15/20 00:43 Motrin PO Q6H PRN Pain/Fever Lorazepam 1 mg 03/15/20 00:43 Ativan IV Q6H PRN Nausea/Vomiting Metoprolol Tartrate 25 mg 03/15/20 09:00 Lopressor PO DAILY [facility] Nitroglycerin 0.4 mg 03/15/20 00:43 Nitrostat SL ASDIRECTED PRN Chest Pain Non-Formulary Medication 50 mg 03/15/20 09:00 Pyridoxine Hcl [Vitamin B-6] PO DAILY [facility] Non-Formulary Medication 300 mg 03/15/20 21:00 Trazodone Hcl [Trazodone Hcl] PO BEDTIME [facility] Non-Formulary Medication 112.5 mg 03/15/20 09:00 Venlafaxine [Effexor Xr] PO DAILY [facility] Ondansetron HCl 4 mg 03/15/20 00:43 Zofran Odt PO Q6H PRN Nausea able to take PO Pantoprazole Sodium 40 mg 03/15/20 00:43 Protonix Iv IV 03/15/20 00:44 ONETIME ONE Quetiapine Fumarate 100 mg 03/15/20 00:00 03/15/20 00:45 Seroquel PO 100 mg BEDTIME [facility]O Administration Quetiapine Fumarate 100 mg 03/15/20 21:00 Seroquel PO BEDTIME [facility] Sodium Chloride 10 ml 03/14/20 20:16 03/14/20 21:04 Saline Flush FLUSH 10 ml ASDIRECTED PRN Administration Keep Vein Open Venlafaxine HCl 37.5 mg 03/15/20 00:56 Effexor Xr PO 03/15/20 00:57 ONETIME ONE Venlafaxine HCl 75 mg 03/15/20 00:57 Effexor Xr PO 03/15/20 00:58 ONETIME ONE Discontinued Medications Generic Name Dose Route Start Last Admin Trade Name Freq PRN Reason Stop Dose Admin Sodium Chloride 1,000 mls @ 500 mls/hr 03/14/20 20:18 03/14/20 20:56 Normal Saline IV 03/14/20 22:17 500 mls/hr .BOLUS ONE Administration Lorazepam 0.5 mg 03/14/20 20:17 03/14/20 21:03 Ativan IVPUSH 03/14/20 20:18 0.5 mg ONETIME ONE Administration Ondansetron HCl 4 mg 03/14/20 20:16 03/14/20 21:00 Zofran IVPUSH 03/14/20 20:17 4 mg ONETIME ONE Administration Venlafaxine HCl 37.5 mg 03/14/20 22:24 03/15/20 00:58 Effexor Xr PO 03/14/20 22:25 Not Given ONETIME ONE Venlafaxine HCl 75 mg 03/14/20 22:30 03/15/20 00:59 Effexor Xr PO Not Given DAILY [facility] - Re-Assessments/Exams Free Text/Narrative Re-Assessment/Exam: CT abdomen-pelvis- colonic fecal retention, history of gastric bypass surgery, cholecystectomy, stable coarsely calcified lesion midpole left kidney. small nonobstructing calculi left kidney. no hydronephrosis. diffuse urinary bladder wall thickening. Departure - Departure Time of Disposition: 22:55 Disposition: Admitted As Inpatient 67 Clinical Impression: Nausea and vomiting Qualifiers: Vomiting type: unspecified Vomiting Intractability: non-intractable Qualified Code(s): R11.2 - Nausea with vomiting, unspecified - Discharge Information *PRESCRIPTION DRUG MONITORING PROGRAM REVIEWED*: Not Applicable *COPY OF PRESCRIPTION DRUG MONITORING REPORT IN PATIENT IVONNE: Not Applicable Sepsis Event Note (ED) - Evaluation Sepsis Screening Result: No Definite Risk - Focused Exam Vital Signs: Vital Signs Temp Pulse Resp BP Pulse Ox 03/14/20 22:55 35.6 C L 71 10 L 147/53 H 94 L 03/14/20 21:41 71 10 L 147/53 H 94 L 03/14/20 21:08 64 14 181/73 H 97 03/14/20 20:13 35.6 C L 64 16 155/67 H 99 - My Orders Last 24 Hours: My Active Orders 03/15/20 00:00 QUEtiapine [SEROqueL] 100 mg PO BEDTIME - Assessment/Plan Last 24 Hours: My Active Orders 03/15/20 00:00 QUEtiapine [SEROqueL] 100 mg PO BEDTIME
[2020-03-15] MEDS ORDERED: Acetaminophen 325 MG Tab PO PRN (00:43)
[2020-03-15] MEDS ORDERED: Nitroglycerin 0.4 MG Tab.SL SL PRN (00:43)
[2020-03-15] MEDS ORDERED: Bisacodyl 5 MG Tab PO PRN (00:43)
[2020-03-15] MEDS ORDERED: Ibuprofen 600 MG Tab PO PRN (00:43)
[2020-03-15] MEDS ORDERED: Pantoprazole 40 MG Vial IV ONE (00:43)
[2020-03-15] MEDS ORDERED: LORazepam 2 MG/ML SDV IV PRN (00:43)
[2020-03-15] MEDS ORDERED: Ondansetron 4 MG Tab.DIS PO PRN (00:43)
[2020-03-15] MEDS ORDERED: Gabapentin 100 MG Cap PO PRN (00:43)
[2020-03-15] MEDS: QUEtiapine 100 MG Tab PO SCH ×2 (00:45→20:46)
[2020-03-15] MEDS ORDERED: Venlafaxine 37.5 MG Cap.ER PO ONE (00:56)
[2020-03-15] MEDS ORDERED: Venlafaxine 75 MG Cap.ER PO ONE (00:57)
--- NOTE | 2020-03-15 01:43 | PCM.HP.2 ---
H&P History of Present Illness - General Date of Service: 03/14/20 Admit Problem/Dx: Admission Diagnosis/Problem Admission Diagnosis/Problem Nausea and vomiting Source of Information: Patient History Limitations: Reports: No Limitations - History of Present Illness Onset of Symptoms: Reports: Gradual Symptom Onset Date: 03/13/20 Duration of Symptoms: Reports: Day(s):, Getting Worse Location: Reports: Generalized Quality: Reports: Other (nausea and vomiting with eating.) Improves with: Reports: None Worsens with: Reports: Eating Context: Reports: Other (nausea and vomiting x 2 days) Associated Symptoms: Reports: Loss of Appetite, Nausea/Vomiting, Weakness Chest Pain Score (Numeric/FACES): 6 - Related Data Allergies/Adverse Reactions: Allergies Allergy/AdvReac Type Severity Reaction Status Date / Time adhesive tape Allergy Mild Rash Verified 03/13/20 17:19 latex Allergy Rash Verified 03/13/20 17:19 codeine AdvReac Hallucinati Verified 03/13/20 17:19 ons Home Medications: Home Meds Aspirin [Halfprin] 81 mg PO DAILY 07/20/13 [History] Metoprolol Tartrate 25 mg PO DAILY 07/20/13 [History] Nitroglycerin [Nitrostat] 0.4 mg SL ASDIRECTED PRN 07/26/13 [History] Venlafaxine [Effexor XR] 112.5 mg PO DAILY 01/09/15 [History] Vitamin B Complex [B-100 Complex] 1 each PO DAILY 01/09/15 [History] traZODone HCl [Trazodone HCl] 300 mg PO BEDTIME 01/09/15 [History] Cholecalciferol (Vitamin D3) [Vitamin D3] 1,000 units PO DAILY 07/01/16 [History ] Simvastatin [Zocor] 20 mg PO DAILY 07/01/16 [History] Zolpidem [Ambien] 5 mg PO BEDTIME PRN 07/01/16 [History] Gabapentin [Neurontin] 100 mg PO TID PRN 03/10/18 [History] Pyridoxine HCl [Vitamin B-6] 50 mg PO DAILY 03/10/18 [History] Fluticasone Propionate [Flonase] 2 spray NS DAILY 09/09/18 [History] methocarbamoL [Robaxin] 2 tab PO QID PRN 09/09/18 [History] Calcium Carbonate/Vitamin D3 [Calcium 600-Vit D3 500 Softgel] 1 tab PO DAILY 03/25 [History] Cerovite Advanced Formula 1 tab PO DAILY 12/10/19 [History] Fluorometholone [Fluorometholone 0.1% Ophth Susp] 1 drop EYEBOTH DAILY 12/10/19 [History] QUEtiapine Fumarate [Quetiapine Fumarate] 100 mg PO BEDTIME 12/10/19 [History] cycloSPORINE [Restasis] 1 each OP BID 12/10/19 [History] Past Medical History HEENT History: Reports: Cataract, Impaired Vision Cardiovascular History: Reports: CAD, Hypertension, [place], Other (See Below) Other Cardiovascular History: dyslipidemia venous insufficiency Gastrointestinal History: Reports: Cholelithiasis, Colon Polyp Genitourinary History: Reports: Other (See Below) Other Genitourinary History: urgency [employer]IST History: Reports: Dysfunctional Uterine Bleeding, Musculoskeletal History: Reports: Arthritis, RA, Other (See Below) Other Musculoskeletal History: recent back pain Neurological History: Reports: Neuropathy, Peripheral Psychiatric History: Reports: Anxiety, Bipolar, Depression, Other (See Below) Other Psychiatric History: memory loss. Endocrine/Metabolic History: Reports: Obesity/BMI 30+ Hematologic History: Reports: Anemia - Infectious Disease History Infectious Disease History: Reports: Chicken Pox - Past Surgical History Head Surgeries/Procedures: Reports: None HEENT Surgical History: Reports: Cataract Surgery, Tonsillectomy Cardiovascular Surgical History: Reports: Coronary Artery Stent GI Surgical History: Reports: Appendectomy, Bariatric Procedure, Cholecystectomy , Colonoscopy, EGD, Hernia, Abdominal Female Surgical History: Reports: Hysterectomy Endocrine Surgical History: Reports: None Neurological Surgical History: Reports: None Musculoskeletal Surgical History: Reports: Knee Replacement, ORIF Social & Family History - Family History Family Medical History: Noncontributory - Tobacco Use Smoking Status *Q: Never Smoker - Caffeine Use Caffeine Use: Reports: Soda - Recreational Drug Use Recreational Drug Use: No H&P Review of Systems - Review of Systems: Review Of Systems: See Below General: Reports: Weakness, Fatigue, Decreased Appetite HEENT: Reports: No Symptoms Pulmonary: Reports: No Symptoms Cardiovascular: Reports: No Symptoms Gastrointestinal: Reports: No Symptoms Genitourinary: Reports: No Symptoms Musculoskeletal: Reports: No Symptoms Skin: Reports: No Symptoms Psychiatric: Reports: No Symptoms Neurological: Reports: No Symptoms Hematologic/Lymphatic: Reports: No Symptoms Immunologic: Reports: No Symptoms Exam - Exam Exam: See Below - Vital Signs Vital Signs: Last Vital Signs Temp 35.6 C L 03/14/20 22:55 Pulse 71 03/14/20 22:55 Resp 10 L 03/14/20 22:55 BP 147/53 H 03/14/20 22:55 Pulse Ox 95 03/15/20 01:00 Weight: 74.8 kg - Exam General: Alert, Mild Distress HEENT: PERRLA, Hearing Intact, Mucosa Moist & [place], Nares Patent, Normal Nasal Septum, Posterior Pharynx Clear, Conjunctiva Clear, EOMI, EACs Clear, TMs Clear Neck: Supple, Trachea Midline, 2 Lungs: Clear to Auscultation, Normal Respiratory Effort Cardiovascular: Regular Rate, Regular Rhythm GI/Abdominal Exam: Normal Bowel Sounds, Soft, Non-Tender, Other (multi old well healed scar noted) (Female) Exam: Deferred Rectal (Female) Exam: Deferred Back Exam: Normal Inspection, Full Range of Motion, NT Extremities: Normal Inspection, Normal Range of Motion, Non-Tender, No Pedal Edema, Normal Capillary Refill Skin: Warm, Dry, Intact Neurological: Reflexes Equal Bilateral, Strength Equal Bilateral, Normal Speech Neuro Extensive - Mental Status: Alert Psychiatric: Other (tearful, anxiety) - Patient Data Lab Results Last 24 hrs: Laboratory Results - last 24 hr 03/14/20 Range/Units 21:25 Lactic Acid 1.1 (0.4-2.0) mmol/L Sepsis Event Note - Evaluation Sepsis Screening Result: No Definite Risk - Focused Exam Vital Signs: Vital Signs Temp Pulse Resp BP Pulse Ox 03/15/20 01:00 95 03/14/20 22:55 35.6 C L 71 10 L 147/53 H 94 L 03/14/20 21:41 71 10 L 147/53 H 94 L 03/14/20 21:08 64 14 181/73 H 97 03/14/20 20:13 35.6 C L 64 16 155/67 H 99 Date Exam was Performed: 03/15/20 Time Exam was Performed: 01:45 - Problem List (1) Nausea and vomiting SNOMED Code(s): 97847307 ICD Code: R11.2 - NAUSEA WITH VOMITING, UNSPECIFIED Status: Acute Priority: High Current Visit: Yes Qualifiers: Vomiting type: unspecified Vomiting Intractability: non-intractable Qualified Code(s): R11.2 - Nausea with vomiting, unspecified (2) History of gastric bypass SNOMED Code(s): 402833158 ICD Code: Z98.84 - BARIATRIC SURGERY STATUS Status: Acute Current Visit: Yes (3) Chronic mental illness SNOMED Code(s): 577229017 ICD Code: F99 - MENTAL DISORDER, NOT OTHERWISE SPECIFIED Status: Acute Priority: Medium Current Visit: Yes Problem List Initiated/Reviewed/Updated: Yes Orders Last 24hrs: Active Orders 24 hr Category Date Time Status Ambulate [RC] QID Care 03/15/20 00:43 Active Intake and Output [RC] QSHIFT Care 03/15/20 00:43 Active Notify Provider Vital Signs [RC] ASDIRECTED Care 03/15/20 00:43 Active Oxygen Therapy [RC] PRN Care 03/15/20 00:43 Active Peripheral IV Care [RC] . DIRECTED Care 03/14/20 20:16 Active Pulse Oximetry [RC] PRN Care 03/15/20 00:43 Active Up ad Amita [RC] ASDIRECTED Care 03/15/20 00:43 Active VTE/DVT Education [RC] Per Unit Routine Care 03/15/20 00:43 Active Vital Signs [RC] Q4H Care 03/15/20 00:43 Active Regular Diet [DIET] Diet 03/15/20 Breakfast Active Abdomen 2V AP Flat Upright [CR] Stat Exams 03/14/20 20:09 Taken BASIC METABOLIC PANEL,BMP [CHEM] AM Lab 03/15/20 05:11 Ordered CBC WITH AUTO DIFF [HEME] AM Lab 03/15/20 05:11 Ordered INFLUENZA A+B AG, DFA W/RFLX Urgent Lab 03/14/20 20:21 Received Acetaminophen [Tylenol] Med 03/15/20 00:43 Active 650 mg PO Q4H PRN Aspirin [Halfprin] Med 03/15/20 09:00 Active 81 mg PO DAILY Docusate Sodium [Colace] Med 03/15/20 09:00 Active 100 mg PO BID Gabapentin [Neurontin] Med 03/15/20 00:43 Active 100 mg PO TID PRN Ibuprofen [Motrin] Med 03/15/20 00:43 Active 600 mg PO Q6H PRN LORazepam [Ativan] Med 03/15/20 00:43 Active 1 mg IV Q6H PRN Metoprolol Tartrate [Lopressor] Med 03/15/20 09:00 Active 25 mg PO DAILY Nitroglycerin [Nitrostat] Med 03/15/20 00:43 Active 0.4 mg SL ASDIRECTED PRN Ondansetron [Zofran ODT] Med 03/15/20 00:43 Active 4 mg PO Q6H PRN QUEtiapine [SEROqueL] Med 03/15/20 00:00 Active 100 mg PO BEDTIME QUEtiapine [SEROqueL] Med 03/15/20 21:00 Active 100 mg PO BEDTIME Sodium Chloride 0.9% [Normal Saline] 1,000 ml Med 03/15/20 00:43 Active IV ASDIRECTED Sodium Chloride 0.9% [Saline Flush] Med 03/14/20 20:16 Active 10 ml FLUSH ASDIRECTED PRN Venlafaxine [Effexor XR] Med 03/15/20 09:00 Active 112.5 mg PO DAILY Vitamin B6-pyridOXINE Med 03/15/20 09:00 Active 50 mg PO DAILY bisacodyL [Dulcolax] Med 03/15/20 00:43 Active 5 mg PO DAILY PRN traZODone Med 03/15/20 21:00 Active 300 mg PO BEDTIME Peripheral IV Insertion Adult [OM.PC] Routine Oth 03/14/20 20:16 Ordered Resuscitation Status Routine Resus Stat 03/15/20 00:27 Ordered Medication Orders Acetaminophen (Tylenol) 650 mg PO Q4H PRN PRN Reason: Pain (Mild 1-3)/fever Aspirin (Halfprin) 81 mg PO DAILY [facility] Bisacodyl (Dulcolax) 5 mg PO DAILY PRN PRN Reason: Constipation Docusate Sodium (Colace) 100 mg PO BID [facility] Gabapentin (Neurontin) 100 mg PO TID PRN PRN Reason: Pain (moderate 4-6) Sodium Chloride (Normal Saline) 1,000 mls @ 125 mls/hr IV ASDIRECTED [facility] Ibuprofen (Motrin) 600 mg PO Q6H PRN PRN Reason: Pain/Fever Lorazepam (Ativan) 1 mg IV Q6H PRN PRN Reason: Nausea/Vomiting Metoprolol Tartrate (Lopressor) 25 mg PO DAILY [facility] Nitroglycerin (Nitrostat) 0.4 mg SL ASDIRECTED PRN PRN Reason: Chest Pain Ondansetron HCl (Zofran Odt) 4 mg PO Q6H PRN PRN Reason: Nausea able to take PO Pyridoxine HCl (Vitamin B6-Pyridoxine) 50 mg PO DAILY [facility] Quetiapine Fumarate (Seroquel) 100 mg PO BEDTIME [facility] Last Admin: 03/15/20 00:45 Dose: 100 mg Quetiapine Fumarate (Seroquel) 100 mg PO BEDTIME [facility] Sodium Chloride (Saline Flush) 10 ml FLUSH ASDIRECTED PRN PRN Reason: Keep Vein Open Last Admin: 03/14/20 21:04 Dose: 10 ml Trazodone HCl (Trazodone) 300 mg PO BEDTIME [facility] Venlafaxine HCl (Effexor Xr) 112.5 mg PO DAILY [facility] Assessment/Plan Comment:: Assessment/Plan Comment:: ASSESSMENT AND PLAN NAUSEA AND VOMITING-likely secondary to abruptly stopping psychiatric medications. Ct scan of abdomen pelvis no acute changes. will plan to admit observation for hydrations and restart medication. -antiemetic as needed -IV fluids for rehydration -advance diet as tolerated. -am labs CBC, BMP History of Gastric By-pass -monitor for complications Mental illness -restart outpatient medications MAINTENANCE ISSUES -DVT prophylaxis; ambulate -GI prophylaxis; Protonix 40 mg IV once -Downs catheter; not indicated -Nutrition; regular diet -Nicotine dependence; not required CODE STATUS-FULL CODE ADMISSION STATUS-this patient will be admitted to observation status, expect no more than a one night hospital stay for evaluation and management of problems as outlined above. DISPOSITION-anticipate discharge to home after the hospital stay. PRIMARY CARE PROVIDER- Jordyn Bass [facility] - Dr. Calderon - Mortality Measure Prognosis:: Good - Mortality Measure Prognosis:: Good
[2020-03-15] MEDS: Sodium Chloride 0.9% 1,000 ML IV SCH ×2 (01:59→08:46)
[2020-03-15] MEDS: Potassium Chloride 20 MEQ, Lidocaine 1% 2 ML in Sodium Chloride 0.9% 100 ML IV SCH ×2 (08:47→11:00)
[2020-03-15] MEDS: Docusate Sodium 100 MG Cap PO SCH ×3 (08:52→20:45)
[2020-03-15] MEDS: Aspirin 81 MG Tab.EC PO SCH (08:52)
[2020-03-15] MEDS: Vitamin B6-pyridOXINE 50 MG Tab PO SCH (08:58)
--- NOTE | 2020-03-15 09:03 | CR ---
Abdomen 2V AP Flat Upright CLINICAL HISTORY: Nausea and vomiting FINDINGS: No free air is identified. Small intestinal configuration is nonacute. There is some gas and feces colon. There is been previous abdominal surgery. Impression: Nonspecific intestinal gas pattern
[2020-03-15] MEDS: Venlafaxine 37.5 MG Cap.ER PO SCH (09:40)
[2020-03-15] MEDS: Metoprolol Tartrate 25 MG Tab PO SCH (09:40)
--- NOTE | 2020-03-15 14:12 | PCM.PN ---
- General Info Date of Service: 03/15/20 Subjective Update: Ms. Alcaraz is a 79-year-old woman who was admitted through the emergency department last night with nausea vomiting, felt to be secondary to lack of her usual medications. She has been started back on her psych meds and has received IV fluids for hydration. She has felt significantly improved with no further nausea or vomiting, she does note significant weakness. Functional Status: Reports: Tolerating Diet, Ambulating, Urinating - Review of Systems General: Reports: Weakness. Denies: Fever, Chills Pulmonary: Reports: No Symptoms Cardiovascular: Reports: No Symptoms Gastrointestinal: Reports: No Symptoms - Patient Data Vitals - Most Recent: Last Vital Signs Temp 95.5 F L 03/15/20 10:37 Pulse 54 L 03/15/20 10:37 Resp 16 03/15/20 10:37 BP 128/50 L 03/15/20 10:37 Pulse Ox 95 03/15/20 10:37 Weight - Most Recent: 164 lb I&O - Last 24 Hours: Intake & Output 03/14/20 03/15/20 03/15/20 22:59 06:59 14:59 Intake Total 567 480 Output Total 500 200 Balance 67 280 Lab Results Last 24 Hours: Laboratory Results - last 24 hr 03/14/20 03/15/20 03/15/20 Range/Units 21:25 04:00 04:00 WBC 4.0 L (4.5-11.0) K/uL RBC 4.21 (3.30-5.50) M/uL Hgb 11.9 L (12.0-15.0) g/dL Hct 37.7 (36.0-48.0) % MCV 90 (80-98) fL MCH 28 (27-31) pg MCHC 32 (32-36) % Plt Count 153 (150-400) K/uL Neut % (Auto) 54 (36-66) % Lymph % (Auto) 33 (24-44) % Cottle % (Auto) 9 H (2-6) % Eos % (Auto) 3 (2-4) % Baso % (Auto) 0 (0-1) % Sodium 145 (140-148) mmol/L Potassium 3.4 L (3.6-5.2) mmol/L Chloride 111 H (100-108) mmol/L Carbon Dioxide 25 (21-32) mmol/L Anion Gap 12.4 (5.0-14.0) mmol/L BUN 8 (7-18) mg/dL Creatinine 0.6 (0.6-1.0) mg/dL Est Cr Clr Drug Dosing 55.51 mL/min Estimated GFR (MDRD) > 60 (>60) Glucose 95 (74-106) mg/dL Lactic Acid 1.1 (0.4-2.0) mmol/L Calcium 7.4 L (8.5-10.1) mg/dL Rian Results Last 24 Hours: Microbiology 03/14/20 20:21 Influenza Type A Antigen Screen - Final Nasal, Unspecified NEGATIVE INFLUENZA A VIRUS AG REFERENCE RANGE: NEGATIVE Influenza Type B Antigen Screen - Final NEGATIVE INFLUENZA B VIRUS AG REFERENCE RANGE: NEGATIVE Med Orders - Current: Current Medications Acetaminophen (Tylenol) 650 mg PO Q4H PRN PRN Reason: Pain (Mild 1-3)/fever Aspirin (Halfprin) 81 mg PO DAILY [facility] Last Admin: 03/15/20 08:52 Dose: 81 mg Bisacodyl (Dulcolax) 5 mg PO DAILY PRN PRN Reason: Constipation Docusate Sodium (Colace) 100 mg PO BID [facility] Last Admin: 03/15/20 09:45 Dose: Not Given Gabapentin (Neurontin) 100 mg PO TID PRN PRN Reason: Pain (moderate 4-6) Sodium Chloride (Normal Saline) 1,000 mls @ 125 mls/hr IV ASDIRECTED [facility] Last Admin: 03/15/20 08:46 Dose: 125 mls/hr Lorazepam (Ativan) 1 mg IV Q6H PRN PRN Reason: Nausea/Vomiting Metoprolol Tartrate (Lopressor) 25 mg PO DAILY [facility] Last Admin: 03/15/20 09:40 Dose: 25 mg Nitroglycerin (Nitrostat) 0.4 mg SL ASDIRECTED PRN PRN Reason: Chest Pain Ondansetron HCl (Zofran Odt) 4 mg PO Q6H PRN PRN Reason: Nausea able to take PO Potassium Chloride (Klor-Con M20) 40 meq PO ONETIME ONE Stop: 03/15/20 14:09 Pyridoxine HCl (Vitamin B6-Pyridoxine) 50 mg PO DAILY [facility] Last Admin: 03/15/20 08:58 Dose: Not Given Quetiapine Fumarate (Seroquel) 100 mg PO BEDTIME [facility] Last Admin: 03/15/20 00:45 Dose: 100 mg Sodium Chloride (Saline Flush) 10 ml FLUSH ASDIRECTED PRN PRN Reason: Keep Vein Open Last Admin: 03/14/20 21:04 Dose: 10 ml Trazodone HCl (Trazodone) 300 mg PO BEDTIME [facility] Venlafaxine HCl (Effexor Xr) 112.5 mg PO DAILY [facility] Last Admin: 03/15/20 09:40 Dose: 112.5 mg Discontinued Medications Sodium Chloride (Normal Saline) 1,000 mls @ 500 mls/hr IV .BOLUS ONE Stop: 03/14/20 22:17 Last Admin: 03/14/20 20:56 Dose: 500 mls/hr Potassium Chloride 20 meq/Lidocaine HCl 2 ml/ Sodium Chloride 112 mls @ 56 mls/ hr IV Q2H [facility] Stop: 03/15/20 12:59 Last Admin: 03/15/20 11:00 Dose: 56 mls/hr Ibuprofen (Motrin) 600 mg PO Q6H PRN PRN Reason: Pain/Fever Lorazepam (Ativan) 0.5 mg IVPUSH ONETIME ONE Stop: 03/14/20 20:18 Last Admin: 03/14/20 21:03 Dose: 0.5 mg Ondansetron HCl (Zofran) 4 mg IVPUSH ONETIME ONE Stop: 03/14/20 20:17 Last Admin: 03/14/20 21:00 Dose: 4 mg Pantoprazole Sodium (Protonix Iv) 40 mg IV ONETIME ONE Stop: 03/15/20 00:44 Last Admin: 03/15/20 01:59 Dose: 40 mg Quetiapine Fumarate (Seroquel) 100 mg PO BEDTIME [facility] Venlafaxine HCl (Effexor Xr) 37.5 mg PO ONETIME ONE Stop: 03/14/20 22:25 Last Admin: 03/15/20 00:58 Dose: Not Given Venlafaxine HCl (Effexor Xr) 75 mg PO DAILY [facility] Last Admin: 03/15/20 00:59 Dose: Not Given Venlafaxine HCl (Effexor Xr) 37.5 mg PO ONETIME ONE Stop: 03/15/20 00:57 Last Admin: 03/15/20 01:59 Dose: 37.5 mg Venlafaxine HCl (Effexor Xr) 75 mg PO ONETIME ONE Stop: 03/15/20 00:58 Last Admin: 03/15/20 01:59 Dose: 75 mg - Exam Quality Assessment: DVT Prophylaxis General: Alert, Oriented, Cooperative, Mild Distress Lungs: Clear to Auscultation, Normal Respiratory Effort Cardiovascular: Regular Rate, Regular Rhythm, No Murmurs GI/Abdominal Exam: Soft, Non-Tender, No Organomegaly, No Distention Extremities: Non-Tender, No Pedal Edema Sepsis Event Note - Evaluation Sepsis Screening Result: No Definite Risk - Focused Exam Vital Signs: Vital Signs Temp Pulse Pulse Resp BP BP Pulse Ox 03/15/20 10:37 95.5 F L 54 L 16 128/50 L 95 03/15/20 09:40 60 122/44 L 03/15/20 07:01 96.6 F L 69 16 123/54 L 95 03/15/20 04:00 97.0 F 76 18 128/46 L 94 L Date Exam was Performed: 03/15/20 Time Exam was Performed: 14:09 - Problem List Review Problem List Initiated/Reviewed/Updated: Yes - My Orders Last 24 Hours: My Active Orders 03/15/20 14:08 Potassium Chloride [Klor-Con M20] 40 meq PO ONETIME ONE 03/16/20 05:11 POTASSIUM,K [CHEM] AM - Plan Plan:: ASSESSMENT AND PLAN NAUSEA AND VOMITING-improved with hydration, now back on her usual meds. Nausea vomiting has resolved but she does report some ongoing weakness. -antiemetic as needed -Saline lock IV -advance diet as tolerated. History of Gastric By-pass -monitor for complications Mental illness -restart outpatient medications MAINTENANCE ISSUES -DVT prophylaxis; ambulate -GI prophylaxis; Protonix 40 mg IV once -Downs catheter; not indicated -Nutrition; regular diet -Nicotine dependence; not required CODE STATUS-FULL CODE ADMISSION STATUS-this patient will be admitted to observation status, expect no more than a one night hospital stay for evaluation and management of problems as outlined above. DISPOSITION-anticipate discharge to home after the hospital stay. PRIMARY CARE PROVIDER- Jordyn Bass [facility] - Dr. Calderon - Mortality Measure Prognosis:: Good
[2020-03-15] MEDS ORDERED: Potassium Chloride 20 MEQ Tab.ER PO ONE ×2 (15:30→18:00)
[2020-03-15] MEDS ORDERED: Enoxaparin 40 MG/0.4 ML Syringe SUBCUT SCH (16:00)
[2020-03-15] MEDS ORDERED: traZODone 50 MG Tab PO SCH (21:00)
[2020-03-15] MEDS ORDERED: QUEtiapine 100 MG Tab PO SCH (21:00)
[2020-03-16] MEDS: Docusate Sodium 100 MG Cap PO SCH (08:10)
[2020-03-16] MEDS: Venlafaxine 37.5 MG Cap.ER PO SCH (08:11)
[2020-03-16] MEDS: Metoprolol Tartrate 25 MG Tab PO SCH (08:12)
[2020-03-16] MEDS: Aspirin 81 MG Tab.EC PO SCH (08:12)
[2020-03-16 11:05] VITALS: BP 124/62; PULSE 55
[2020-03-16] MEDS: Vitamin B6-pyridOXINE 50 MG Tab PO SCH (11:12)
--- NOTE | 2020-03-16 12:55 | PCM.DCSUM1 ---
Discharge Summary - Hospital Course Brief History: Ms. Alcaraz is a 79-year-old woman who was admitted to observation status through the emergency department for further management of weakness with dehydration and nausea and vomiting. - Discharge Data Discharge Date: 03/16/20 Discharge Disposition: Home, Self-Care 01 Condition: Stable - Referral to Home Health Primary Care Physician: PCP None - Discharge Diagnosis/Problem(s) (1) Dehydration SNOMED Code(s): 77756885 ICD Code: E86.0 - DEHYDRATION Status: Acute Current Visit: Yes (2) Nausea and vomiting SNOMED Code(s): 94397592 ICD Code: R11.2 - NAUSEA WITH VOMITING, UNSPECIFIED Status: Acute Priority: High Current Visit: Yes Qualifiers: Vomiting type: unspecified Vomiting Intractability: non-intractable Qualified Code(s): R11.2 - Nausea with vomiting, unspecified (3) History of gastric bypass SNOMED Code(s): 502798734 ICD Code: Z98.84 - BARIATRIC SURGERY STATUS Status: Chronic Current Visit : Yes (4) Chronic mental illness SNOMED Code(s): 323016179 ICD Code: F99 - MENTAL DISORDER, NOT OTHERWISE SPECIFIED Status: Chronic Priority: Medium Current Visit: Yes - Patient Summary/Data Hospital Course: Ms. Alcaraz is a 79-year-old woman who was admitted through the emergency department to observation status with nausea vomiting, felt to be secondary to lack of her usual medications. She was started back on her psych meds and received IV fluids for hydration. On the morning after admission still noted some weakness, despite resolution of nausea and vomiting. She also experienced a headache, similar to what she has had in the past. She was kept 1 additional day, potassium was replaced for hypokalemia and by the time of discharge potassium level was within normal range. On the morning of discharge she reported feeling significantly improved with resolution of weakness as well as her headache. She did have a phone appointment prior to discharge with psychiatry and did receive prescriptions for her medications. Follow-up appointment will be scheduled with her primary care provider within 1 week. Activity will be as tolerated and she will resume her usual diet. - Patient Instructions Diet: Usual Diet as Tolerated Activity: As Tolerated Other/Special Instructions: Please schedule follow-up appointment with primary care provider within 1 week. - Discharge Plan *PRESCRIPTION DRUG MONITORING PROGRAM REVIEWED*: Not Applicable *COPY OF PRESCRIPTION DRUG MONITORING REPORT IN PATIENT IVONNE: Not Applicable Home Medications: Home Meds Aspirin [Halfprin] 81 mg PO DAILY 07/20/13 [History] Metoprolol Tartrate 25 mg PO DAILY 07/20/13 [History] Nitroglycerin [Nitrostat] 0.4 mg SL ASDIRECTED PRN 07/26/13 [History] Venlafaxine [Effexor XR] 112.5 mg PO DAILY 01/09/15 [History] Vitamin B Complex [B-100 Complex] 1 each PO DAILY 01/09/15 [History] traZODone HCl [Trazodone HCl] 300 mg PO BEDTIME 01/09/15 [History] Cholecalciferol (Vitamin D3) [Vitamin D3] 1,000 units PO DAILY 07/01/16 [History ] Simvastatin [Zocor] 20 mg PO DAILY 07/01/16 [History] Zolpidem [Ambien] 5 mg PO BEDTIME PRN 07/01/16 [History] Gabapentin [Neurontin] 100 mg PO TID PRN 03/10/18 [History] Pyridoxine HCl [Vitamin B-6] 50 mg PO DAILY 03/10/18 [History] Fluticasone Propionate [Flonase] 2 spray NS DAILY 09/09/18 [History] methocarbamoL [Robaxin] 2 tab PO QID PRN 09/09/18 [History] Calcium Carbonate/Vitamin D3 [Calcium 600-Vit D3 500 Softgel] 1 tab PO DAILY 03/25 [History] Cerovite Advanced Formula 1 tab PO DAILY 12/10/19 [History] Fluorometholone [Fluorometholone 0.1% Ophth Susp] 1 drop EYEBOTH DAILY 12/10/19 [History] QUEtiapine Fumarate [Quetiapine Fumarate] 100 mg PO BEDTIME 12/10/19 [History] cycloSPORINE [Restasis] 1 each OP BID 12/10/19 [History] Referrals: Anders Franks MD [Ordering Only Provider] - (Dr. Joseph Franks would like a home visit scheduled in 2weeks. Please call to schedule.) - Discharge Summary/Plan Comment DC Time >30 min.: No - Patient Data Vitals - Most Recent: Last Vital Signs Temp 96.3 F L 03/16/20 11:02 Pulse 55 L 06/11/20 11:02 Resp 16 03/16/20 11:02 BP 124/62 03/16/20 11:02 Pulse Ox 97 03/16/20 11:02 Weight - Most Recent: 164 lb I&O - Last 24 hours: Intake & Output 03/15/20 03/16/20 03/16/20 22:59 06:59 14:59 Intake Total 320 240 400 Output Total 700 1100 Balance -380 -860 400 Lab Results - Last 24 hrs: Laboratory Results - last 24 hr 03/15/20 03/16/20 Range/Units 16:39 06:00 Potassium 4.2 (3.6-5.2) mmol/L Urine Color Yellow (YELLOW) Urine Appearance Clear (CLEAR) Urine pH 5.5 (5.0-8.0) Ur Specific [place] 1.025 (1.008-1.030) Urine Protein Negative (NEGATIVE) mg/dL Urine Glucose (UA) Negative (NEGATIVE) mg/dL Urine Ketones Negative (NEGATIVE) mg/dL Urine Occult Blood Negative (NEGATIVE) Urine Nitrite Negative (NEGATIVE) Urine Bilirubin Negative (NEGATIVE) Urine Urobilinogen 0.2 (0.2-1.0) EU/dL Ur Leukocyte Esterase Trace H (NEGATIVE) Urine RBC 0-5 (0-5) Urine WBC 5-10 H (0-5) Ur Epithelial Cells Few Amorphous Sediment Not seen Urine Bacteria Few Urine Mucus Not seen MOMO Results - Last 24 hrs: Microbiology 03/14/20 20:21 Influenza Type A Antigen Screen - Final Nasal, Unspecified NEGATIVE INFLUENZA A VIRUS AG REFERENCE RANGE: NEGATIVE Influenza Type B Antigen Screen - Final NEGATIVE INFLUENZA B VIRUS AG REFERENCE RANGE: NEGATIVE Med Orders - Current: Current Medications Acetaminophen (Tylenol) 650 mg PO Q4H PRN PRN Reason: Pain (Mild 1-3)/fever Aspirin (Halfprin) 81 mg PO DAILY [facility] Last Admin: 03/16/20 08:12 Dose: 81 mg Bisacodyl (Dulcolax) 5 mg PO DAILY PRN PRN Reason: Constipation Docusate Sodium (Colace) 100 mg PO BID [facility] Last Admin: 03/16/20 08:10 Dose: Not Given Enoxaparin Sodium (Lovenox) 40 mg SUBCUT Q24H [facility] Last Admin: 03/15/20 16:22 Dose: 40 mg Gabapentin (Neurontin) 100 mg PO TID PRN PRN Reason: Pain (moderate 4-6) Lorazepam (Ativan) 1 mg IV Q6H PRN PRN Reason: Nausea/Vomiting Metoprolol Tartrate (Lopressor) 25 mg PO DAILY [facility] Last Admin: 03/16/20 08:12 Dose: 25 mg Nitroglycerin (Nitrostat) 0.4 mg SL ASDIRECTED PRN PRN Reason: Chest Pain Ondansetron HCl (Zofran Odt) 4 mg PO Q6H PRN PRN Reason: Nausea able to take PO Pyridoxine HCl (Vitamin B6-Pyridoxine) 50 mg PO DAILY [facility] Last Admin: 03/16/20 11:12 Dose: Not Given Quetiapine Fumarate (Seroquel) 100 mg PO BEDTIME [facility] Last Admin: 03/15/20 20:46 Dose: 100 mg Sodium Chloride (Saline Flush) 10 ml FLUSH ASDIRECTED PRN PRN Reason: Keep Vein Open Last Admin: 03/14/20 21:04 Dose: 10 ml Trazodone HCl (Trazodone) 300 mg PO BEDTIME [facility] Last Admin: 03/15/20 20:46 Dose: 300 mg Venlafaxine HCl (Effexor Xr) 112.5 mg PO DAILY [facility] Last Admin: 03/16/20 08:11 Dose: 112.5 mg Discontinued Medications Sodium Chloride (Normal Saline) 1,000 mls @ 500 mls/hr IV .BOLUS ONE Stop: 03/14/20 22:17 Last Admin: 03/14/20 20:56 Dose: 500 mls/hr Sodium Chloride (Normal Saline) 1,000 mls @ 125 mls/hr IV ASDIRECTED [facility] Last Admin: 03/15/20 08:46 Dose: 125 mls/hr Potassium Chloride 20 meq/Lidocaine HCl 2 ml/ Sodium Chloride 112 mls @ 56 mls/ hr IV Q2H [facility] Stop: 03/15/20 12:59 Last Admin: 03/15/20 11:00 Dose: 56 mls/hr Ibuprofen (Motrin) 600 mg PO Q6H PRN PRN Reason: Pain/Fever Lorazepam (Ativan) 0.5 mg IVPUSH ONETIME ONE Stop: 03/14/20 20:18 Last Admin: 03/14/20 21:03 Dose: 0.5 mg Ondansetron HCl (Zofran) 4 mg IVPUSH ONETIME ONE Stop: 03/14/20 20:17 Last Admin: 03/14/20 21:00 Dose: 4 mg Pantoprazole Sodium (Protonix Iv) 40 mg IV ONETIME ONE Stop: 03/15/20 00:44 Last Admin: 03/15/20 01:59 Dose: 40 mg Potassium Chloride (Klor-Con M20) 40 meq PO ONETIME ONE Stop: 03/15/20 15:31 Last Admin: 03/15/20 16:22 Dose: 40 meq Potassium Chloride (Klor-Con M20) 40 meq PO ONETIME ONE Stop: 03/15/20 18:01 Last Admin: 03/15/20 18:05 Dose: 40 meq Quetiapine Fumarate (Seroquel) 100 mg PO BEDTIME [facility] Venlafaxine HCl (Effexor Xr) 37.5 mg PO ONETIME ONE Stop: 03/14/20 22:25 Last Admin: 03/15/20 00:58 Dose: Not Given Venlafaxine HCl (Effexor Xr) 75 mg PO DAILY [facility] Last Admin: 03/15/20 00:59 Dose: Not Given Venlafaxine HCl (Effexor Xr) 37.5 mg PO ONETIME ONE Stop: 03/15/20 00:57 Last Admin: 03/15/20 01:59 Dose: 37.5 mg Venlafaxine HCl (Effexor Xr) 75 mg PO ONETIME ONE Stop: 03/15/20 00:58 Last Admin: 03/15/20 01:59 Dose: 75 mg - Exam General: Reports: Alert, Oriented, Cooperative, No Acute Distress Lungs: Reports: Clear to Auscultation, Normal Respiratory Effort Cardiovascular: Reports: Regular Rate, Regular Rhythm, No Murmurs GI/Abdominal Exam: Soft, Non-Tender, No Organomegaly, No Distention Extremities: Non-Tender, No Pedal Edema
== END 2020-03-16 14:25 | disposition home or self-care (01) ==
LOC: JP.ED 19:56 → JP.MS 23:18
PROVIDERS: ADMIT Hospitalist; ATTEND Hospitalist
DX: R11.2 Nausea with vomiting, unspecified (principal); E86.0 Dehydration; R53.1 Weakness; E87.6 Hypokalemia; R51 Headache; I10 Essential (primary) hypertension; E78.5 Hyperlipidemia, unspecified; F41.9 Anxiety disorder, unspecified; F31.9 Bipolar disorder, unspecified; E66.9 Obesity, unspecified; Z98.84 Bariatric surgery status; Z79.82 Long term (current) use of aspirin; Z88.5 Allergy status to narcotic agent; Z91.040 Latex allergy status; Z91.048 Other nonmedicinal substance allergy status; Z79.899 Other long term (current) drug therapy; Z68.34 Body mass index [BMI] 34.0-34.9, adult
CPT/HCPCS: 36415; 74019; 74176; 80048; 81001; 83605; 84132; 85025; 87015; 87275; 87276; 87804; 96361; 96374; 96375; 99285; A9270; C9113; J1650; J2001; J2060; J2405; J3480; J7030; J7040; J7050; 96372; 99284; G0378

== ENCOUNTER 2020-04-25 12:57 | Emergency (ER) | payer MEDICARE, MEDICAID ==
[2020-04-25] MEDS ORDERED: Lidocaine 1% with EPINEPHrine 1:100,000 50 ML MDV INFILT ONE (13:44)
[2020-04-25] MEDS ORDERED: Bacitracin Oint 1 GM U/D Packet TOP ONE (14:16)
--- NOTE | 2020-04-25 14:22 | EDM.PDOC ---
<Nadine Laughlin M - Last Filed: 04/25/20 14:17> ED HPI GENERAL MEDICAL PROBLEM - General Chief Complaint: Head Injury Stated Complaint: FALL, HIT HEAD Time Seen by Provider: 04/25/20 13:33 Source of Information: Reports: Patient, RN, RN Notes Reviewed History Limitations: Reports: No Limitations - History of Present Illness INITIAL COMMENTS - FREE TEXT/NARRATIVE: 79 year old female per privbate vehicle transported by friend she lives with. Pt was cleaning and lost her balance and fell into end table in living room. No LOC. Pt has a cloth on the back of her head due to the bleeding. Denies any distress or concerns. Describes tenderness when cleaning. Onset: Today Onset Date: 04/25/20 Onset Time: 12:00 Duration: Hour(s): Location: Reports: Head Quality: Reports: Ache Severity: Mild Improves with: Reports: None Worsens with: Reports: None Associated Symptoms: Reports: No Other Symptoms Head Pain Score (Numeric/FACES): 5 - Related Data Allergies Allergy/AdvReac Type Severity Reaction Status Date / Time adhesive tape Allergy Mild Rash Verified 03/13/20 17:19 latex Allergy Rash Verified 03/13/20 17:19 codeine AdvReac Hallucinati Verified 03/13/20 17:19 ons Home Meds: Home Meds Aspirin [Halfprin] 81 mg PO DAILY 07/20/13 [History] Metoprolol Tartrate 25 mg PO DAILY 07/20/13 [History] Nitroglycerin [Nitrostat] 0.4 mg SL ASDIRECTED PRN 07/26/13 [History] Venlafaxine [Effexor XR] 112.5 mg PO DAILY 01/09/15 [History] Vitamin B Complex [B-100 Complex] 1 each PO DAILY 01/09/15 [History] traZODone HCl [Trazodone HCl] 300 mg PO BEDTIME 01/09/15 [History] Cholecalciferol (Vitamin D3) [Vitamin D3] 1,000 units PO DAILY 07/01/16 [History] Simvastatin [Zocor] 20 mg PO DAILY 07/01/16 [History] Zolpidem [Ambien] 5 mg PO BEDTIME PRN 07/01/16 [History] Gabapentin [Neurontin] 100 mg PO TID PRN 03/10/18 [History] Pyridoxine HCl [Vitamin B-6] 50 mg PO DAILY 03/10/18 [History] Fluticasone Propionate [Flonase] 2 spray NS DAILY 09/09/18 [History] methocarbamoL [Robaxin] 2 tab PO QID PRN 09/09/18 [History] Calcium Carbonate/Vitamin D3 [Calcium 600-Vit D3 500 Softgel] 1 tab PO DAILY 12/10/19 [History] Cerovite Advanced Formula 1 tab PO DAILY 12/10/19 [History] Fluorometholone [Fluorometholone 0.1% Ophth Susp] 1 drop EYEBOTH DAILY 12/10/19 [History] QUEtiapine Fumarate [Quetiapine Fumarate] 100 mg PO BEDTIME 12/10/19 [History] cycloSPORINE [Restasis] 1 each OP BID 12/10/19 [History] Past Medical History HEENT History: Reports: Cataract, Impaired Vision Cardiovascular History: Reports: CAD, Hypertension, [place], Other (See Below) Other Cardiovascular History: dyslipidemia venous insufficiency Gastrointestinal History: Reports: Cholelithiasis, Colon Polyp Genitourinary History: Reports: Other (See Below) Other Genitourinary History: urgency [employer] 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 Endocrine/Metabolic History: Reports: Obesity/BMI 30+ Hematologic History: Reports: Anemia - Infectious Disease History Infectious Disease History: Reports: Chicken Pox - Past Surgical History HEENT Surgical History: Reports: Cataract Surgery, Tonsillectomy Cardiovascular Surgical History: Reports: Coronary Artery Stent GI Surgical History: Reports: Appendectomy, Bariatric Procedure, Cholecystectomy, Colonoscopy, EGD, Hernia, Abdominal Female Surgical History: Reports: Hysterectomy Endocrine Surgical History: Reports: None Neurological Surgical History: Reports: None Musculoskeletal Surgical History: Reports: Knee Replacement, ORIF Social & Family History - Family History Family Medical History: Noncontributory - Tobacco Use Smoking Status *Q: Former Smoker Years of Tobacco use: 10 Packs/Tins Daily: 1 Used Tobacco, but Quit: Yes Month/Year Tobacco Last Used: 1994 - Caffeine Use Caffeine Use: Reports: Soda Other Caffeine Use: 1 soda per day - Recreational Drug Use Recreational Drug Use: No - Living Situation & Occupation Social History Comment: Lives with friend ED ROS GENERAL - Review of Systems Review Of Systems: See Below Constitutional: Reports: No Symptoms HEENT: Reports: Other (posterior head lac/hematoma) Respiratory: Reports: No Symptoms Cardiovascular: Reports: No Symptoms Endocrine: Reports: No Symptoms GI/Abdominal: Reports: No Symptoms : Reports: No Symptoms Musculoskeletal: Reports: No Symptoms Skin: Reports: Other (Posterior head lac/hematoma) Neurological: Reports: No Symptoms Psychiatric: Reports: No Symptoms Hematologic/Lymphatic: Reports: No Symptoms Immunologic: Reports: No Symptoms ED EXAM, HEAD INJURY - Physical Exam Exam: See Below Exam Limited By: No Limitations General Appearance: Alert, WD/WN, Mild Distress Head: Scalp Lacerations, Scalp Hematoma, Active Bleeding Eyes: Bilateral Eye: Normal Inspection, PERRL Neck: Non-Tender, Full Range of Motion, Normal Alignment, Normal Inspection Respiratory: No Respiratory Distress, Lungs Clear, Normal Breath Sounds, No Accessory Muscle Use, Chest Non-Tender Cardiovascular: Normal Peripheral Pulses, Regular Rate, Rhythm, No Edema, No Gallop, No Murmur, No Rub (Female) Exam: Deferred Rectal (Female) Exam: Deferred Back Exam: Normal Inspection, Full Range of Motion Extremities: Normal Inspection, Normal Range of Motion, Non-Tender, Normal Capillary Refill Neurologic: No Motor/Sensory Deficits, Normal Mood/Affect Skin: Normal Color, Warm/Dry - Jose Alfredo Coma Score Best Eye Response (Jose Alfredo): (4) Open Spontaneously Best Verbal Response ([place]): (5) Oriented Best Motor Response ([place] Alfredo): (6) Obeys Commands ED LACERATION/WOUND & NORMA PROC - Laceration/Wound Repair Posterior Midline [place] Head Lac/wound length in cm: 3 Appearance: Superficial Distal NVT: Neuro & Vascular Intact Anesthetic Type: Local Local Anesthesia - Lidocaine (Xylocaine): 1% with EPI Local Anesthetic Volume: 5cc Skin Prep: Saline, Sterile Drape Closed with: Sutures Suture Size: 4-0 # of Sutures: 2 Suture Type: Nylon Course - Vital Signs Text/Narrative:: Pt to ER with lac/hematoma form fall into end table while cleaning. Departure - Departure Time of Disposition: 14:27 Disposition: Home, Self-Care 01 Condition: Good Clinical Impression: Laceration of head Qualifiers: Encounter type: initial encounter Location of open wound of head: scalp - Discharge Information *PRESCRIPTION DRUG MONITORING PROGRAM REVIEWED*: Not Applicable *COPY OF PRESCRIPTION DRUG MONITORING REPORT IN PATIENT IVONNE: Not Applicable Instructions: Laceration Care, Adult, [id number], Sutures, [place], or Adhesive Wound Closure, [id number] Referrals: PCP,None [Primary Care Provider] - Forms: ED Department Discharge Sepsis Event Note (ED) - Evaluation Sepsis Screening Result: No Definite Risk - Problem List & Annotations (1) Laceration of head SNOMED Code(s): 671135131 Code(s): S01.91XA - LACERATION W/O FOREIGN BODY OF UNSP PART OF HEAD, INIT Status: Acute Priority: High Onset Date: ~04/25/20 Qualifiers: Encounter type: initial encounter Location of open wound of head: scalp - Problem List Review Problem List Initiated/Reviewed/Updated: Yes - Assessment/Plan Assessment:: Please apply ice every hour to laceration for 10-15 minutes for comfort. Please rest and stay out of the heat the rest of the day. Be sure to eat and drink. You may shower but keep sutures clean and dry. Please have the two sutures removed Friday of next week. Contact your primary provider with any signs of fever, chills, drainage, or redness from laceration. <Fabrice Sanon - Last Filed: 04/25/20 16:01> Course - Vital Signs Last Recorded V/S: Last Vital Signs Temp 96.7 F L 04/25/20 13:22 Pulse 77 04/25/20 14:12 Resp 15 04/25/20 13:22 BP 141/83 H 04/25/20 14:12 Pulse Ox 96 04/25/20 13:22 - Orders/Labs/Meds Meds: Medications Discontinued Medications Generic Name Dose Route Start Last Admin Trade Name Freq PRN Reason Stop Dose Admin Bacitracin 1 dose 04/25/20 14:16 04/25/20 14:45 Bacitracin Oint 1 Gm TOP 04/25/20 14:17 1 dose ONETIME ONE Administration Lidocaine/Epinephrine 30 ml 04/25/20 13:44 04/25/20 14:46 Xylocaine 1% With Epinephrine 1:100,000 INFILT 04/25/20 13:45 30 ml ONETIME ONE Administration Departure - Departure Time of Disposition: 15:05 Sepsis Event Note (ED) - Focused Exam Vital Signs: Vital Signs Temp Pulse Resp BP Pulse Ox 04/25/20 14:12 77 141/83 H 04/25/20 13:22 96.7 F L 15 133/65 96 04/25/20 13:14 96.7 F L 15 133/65 96 Attestation - Student - Attestation Statement Attestation Statement: I personally performed or re-performed the physical examination and medical decision making. I have verified all student documentation or findings, including history, physical exam and/or medical decision making.
[2020-04-25 14:52] VITALS: BP 141/83; PULSE 77
== END 2020-04-25 15:05 | disposition home or self-care (01) ==
LOC: JP.ED 12:57
DX: S01.01XA Laceration without foreign body of scalp, initial encounter (principal); I10 Essential (primary) hypertension; I25.10 Atherosclerotic heart disease of native coronary artery without angina pectoris; I25.2 Old myocardial infarction; E78.5 Hyperlipidemia, unspecified; M06.9 Rheumatoid arthritis, unspecified; F41.9 Anxiety disorder, unspecified; F31.9 Bipolar disorder, unspecified; E66.9 Obesity, unspecified; Z68.32 Body mass index [BMI] 32.0-32.9, adult; Z87.891 Personal history of nicotine dependence; Z91.048 Other nonmedicinal substance allergy status; Z88.5 Allergy status to narcotic agent; Z91.040 Latex allergy status; Z79.82 Long term (current) use of aspirin; Z79.899 Other long term (current) drug therapy; W19.XXXA Unspecified fall, initial encounter; Y92.009 Unspecified place in unspecified non-institutional (private) residence as the place of occurrence of the external cause
CPT/HCPCS: 12002; 99282-25

== ENCOUNTER 2020-12-08 16:04 | Emergency (ER) | payer MEDICARE, MEDICAID ==
--- NOTE | 2020-12-08 16:30 | EDM.PDOC ---
ED HPI GENERAL MEDICAL PROBLEM - General Chief Complaint: Lower Extremity Injury/Pain Stated Complaint: MEDICAL VIA NORTH Time Seen by Provider: 12/08/20 16:27 Source of Information: Reports: Patient History Limitations: Reports: No Limitations - History of Present Illness INITIAL COMMENTS - FREE TEXT/NARRATIVE: pt got up this am and her left ankle was very painful. She did note mild swelling. She did not fall or injure the ankle. She is not able to walk on the foot. Onset: Today, Sudden Duration: Hour(s): Location: Reports: Lower Extremity, Left Associated Symptoms: Reports: No Other Symptoms - Related Data Allergies Allergy/AdvReac Type Severity Reaction Status Date / Time adhesive tape Allergy Mild Rash Verified 12/08/20 16:08 latex Allergy Rash Verified 12/08/20 16:08 codeine AdvReac Hallucinati Verified 12/08/20 16:08 ons Home Meds: Home Meds Aspirin [Halfprin] 81 mg PO DAILY 07/20/13 [History] Metoprolol Tartrate 25 mg PO DAILY 07/20/13 [History] Nitroglycerin [Nitrostat] 0.4 mg SL ASDIRECTED PRN 07/26/13 [History] Venlafaxine [Effexor XR] 112.5 mg PO DAILY 01/09/15 [History] Vitamin B Complex [B-100 Complex] 1 each PO DAILY 01/09/15 [History] Cholecalciferol (Vitamin D3) [Vitamin D3] 1,000 units PO DAILY 07/01/16 [History] Simvastatin [Zocor] 20 mg PO DAILY 07/01/16 [History] Gabapentin [Neurontin] 300 mg PO TID 03/10/18 [History] Pyridoxine HCl [Vitamin B-6] 50 mg PO DAILY 03/10/18 [History] Calcium Carbonate/Vitamin D3 [Calcium 600-Vit D3 500 Softgel] 1 tab PO DAILY 12/10/19 [History] Cerovite Advanced Formula 1 tab PO DAILY 12/10/19 [History] QUEtiapine Fumarate [Quetiapine Fumarate] 100 mg PO BEDTIME 12/10/19 [History] Alendronate Sodium 35 mg PO WEEKLY 12/08/20 [History] Psyllium Husk [Metamucil] 1 cap PO DAILY 12/08/20 [History] Past Medical History HEENT History: Reports: Cataract, Impaired Vision Cardiovascular History: Reports: CAD, Hypertension, [place], Other (See Below) Other Cardiovascular History: dyslipidemia venous insufficiency Gastrointestinal History: Reports: Cholelithiasis, Colon Polyp Genitourinary History: Reports: Other (See Below) Other Genitourinary History: 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 Endocrine/Metabolic History: Reports: Obesity/BMI 30+ Hematologic History: Reports: Anemia - Infectious Disease History Infectious Disease History: Reports: Chicken Pox, Measles, Mumps, Shingles - Past Surgical History Head Surgeries/Procedures: Reports: None HEENT Surgical History: Reports: Cataract Surgery, Tonsillectomy Cardiovascular Surgical History: Reports: Coronary Artery Stent GI Surgical History: Reports: Appendectomy, Bariatric Procedure, Cholecystectomy, Colonoscopy, EGD, Hernia, Abdominal Female Surgical History: Reports: Hysterectomy Endocrine Surgical History: Reports: None Neurological Surgical History: Reports: None Musculoskeletal Surgical History: Reports: Knee Replacement, ORIF Other Musculoskeletal Surgeries/Procedures:: bilat knee replacements, fx right ankle with pins, but removed. Dermatological Surgical History: Reports: None Social & Family History - Family History Family Medical History: No Pertinent Family History - Tobacco Use Tobacco Use Status *Q: Former Tobacco User Used Tobacco, but Quit: Yes Month/Year Tobacco Last Used: 1975 - Caffeine Use Caffeine Use: Reports: Soda Other Caffeine Use: 1 soda per day - Recreational Drug Use Recreational Drug Use: No Review of Systems - Review of Systems Review Of Systems: See Below Constitutional: Reports: No Symptoms Eyes: Reports: No Symptoms Ears: Reports: No Symptoms Nose: Reports: No Symptoms Mouth/Throat: Reports: No Symptoms Respiratory: Reports: No Symptoms Cardiovascular: Reports: No Symptoms GI/Abdominal: Reports: No Symptoms Genitourinary: Reports: No Symptoms Musculoskeletal: Reports: Other ( pain in left foot and ankle. ) ED EXAM, GENERAL - Physical Exam Exam: See Below Free Text/Narrative:: pt arrived with pain in left ankle and she has not been able to bear weight on it She states the pain centered around the ankle. The pt has not fallen or had trauma to the ankle Exam Limited By: No Limitations General Appearance: Alert, Anxious, Moderate Distress Ears: Normal TMs Nose: Normal Inspection Throat/Mouth: Normal Inspection Head: Atraumatic Neck: Normal Inspection Respiratory/Chest: No Respiratory Distress Cardiovascular: Regular Rate, Rhythm GI/Abdominal: Soft, Non-Tender (Female) Exam: Deferred Rectal (Female) Exam: Deferred Back Exam: Normal Inspection Extremities: Other (left ankle is tender medial and laterally with slight swelling. She is also tender posteriorly in the lower leg. There is some firmness noted in the area. This area is tender. She has great pulses. She has no discoloration. ) Neurological: Alert, Oriented, Normal Cognition Course - Vital Signs Last Recorded V/S: Last Vital Signs Temp 36.6 C 12/08/20 16:09 Pulse 69 12/08/20 17:30 Resp 12 12/08/20 17:30 BP 186/79 H 12/08/20 17:30 Pulse Ox 96 12/08/20 17:30 - Orders/Labs/Meds Labs: Laboratory Tests 12/08/20 12/08/20 12/08/20 Range/Units 16:38 16:38 16:38 WBC 7.5 (4.5-11.0) K/uL RBC 4.76 (3.30-5.50) M/uL Hgb 13.4 (12.0-15.0) g/dL Hct 42.6 (36.0-48.0) % MCV 90 (80-98) fL MCH 28 (27-31) pg MCHC 32 (32-36) % Plt Count 159 (150-400) K/uL Neut % (Auto) 79 H (36-66) % Lymph % (Auto) 10 L (24-44) % [place] % (Auto) 8 H (2-6) % Eos % (Auto) 2 (2-4) % Baso % (Auto) 0 (0-1) % D-Dimer, Quantitative (0.0-500.0) ng/mL Sodium 143 (140-148) mmol/L Potassium 4.1 (3.6-5.2) mmol/L Chloride 108 (100-108) mmol/L Carbon Dioxide 25 (21-32) mmol/L Anion Gap 9.7 (5.0-14.0) mmol/L BUN 11 (7-18) mg/dL Creatinine 0.7 (0.6-1.0) mg/dL Est Cr Clr Drug Dosing 46.81 mL/min Estimated GFR (MDRD) > 60 (>60) Glucose 90 (74-106) mg/dL Uric Acid (2.6-6.2) mg/dL Calcium 8.5 (8.5-10.1) mg/dL Total Bilirubin 0.4 (0.2-1.0) mg/dL AST 32 (15-37) U/L ALT 27 (12-78) U/L Alkaline Phosphatase 135 H (46-116) U/L Troponin I < 0.017 (0.000-0.056) ng/mL C-Reactive Protein 0.15 (0.0-0.3) mg/dL Total Protein 5.9 L (6.4-8.2) g/dL Albumin 2.9 L (3.4-5.0) g/dL Globulin 3.0 (2.3-3.5) g/dL Albumin/Globulin Ratio 1.0 L (1.2-2.2) Urine Color (YELLOW) Urine Appearance (CLEAR) Urine pH (5.0-8.0) Ur Specific [place] (1.008-1.030) Urine Protein (NEGATIVE) mg/dL Urine Glucose (UA) (NEGATIVE) mg/dL Urine Ketones (NEGATIVE) mg/dL Urine Occult Blood (NEGATIVE) Urine Nitrite (NEGATIVE) Urine Bilirubin (NEGATIVE) Urine Urobilinogen (0.2-1.0) EU/dL Ur Leukocyte Esterase (NEGATIVE) Urine RBC (0-5) Urine WBC (0-5) Ur Epithelial Cells Amorphous Sediment Urine Bacteria Urine Mucus 12/08/20 12/08/20 12/08/20 Range/Units 16:38 16:41 17:33 WBC (4.5-11.0) K/uL RBC (3.30-5.50) M/uL Hgb (12.0-15.0) g/dL Hct (36.0-48.0) % MCV (80-98) fL MCH (27-31) pg MCHC (32-36) % Plt Count (150-400) K/uL Neut % (Auto) (36-66) % Lymph % (Auto) (24-44) % [place] % (Auto) (2-6) % Eos % (Auto) (2-4) % Baso % (Auto) (0-1) % D-Dimer, Quantitative 5688.97 H (0.0-500.0) ng/mL Sodium (140-148) mmol/L Potassium (3.6-5.2) mmol/L Chloride (100-108) mmol/L Carbon Dioxide (21-32) mmol/L Anion Gap (5.0-14.0) mmol/L BUN (7-18) mg/dL Creatinine (0.6-1.0) mg/dL Est Cr Clr Drug Dosing mL/min Estimated GFR (MDRD) (>60) Glucose (74-106) mg/dL Uric Acid 2.9 (2.6-6.2) mg/dL Calcium (8.5-10.1) mg/dL Total Bilirubin (0.2-1.0) mg/dL AST (15-37) U/L ALT (12-78) U/L Alkaline Phosphatase (46-116) U/L Troponin I (0.000-0.056) ng/mL C-Reactive Protein (0.0-0.3) mg/dL Total Protein (6.4-8.2) g/dL Albumin (3.4-5.0) g/dL Globulin (2.3-3.5) g/dL Albumin/Globulin Ratio (1.2-2.2) Urine Color Yellow (YELLOW) Urine Appearance Clear (CLEAR) Urine pH 6.5 (5.0-8.0) Ur Specific [place] 1.020 (1.008-1.030) Urine Protein Negative (NEGATIVE) mg/dL Urine Glucose (UA) Negative (NEGATIVE) mg/dL Urine Ketones Negative (NEGATIVE) mg/dL Urine Occult Blood Trace-intact H (NEGATIVE) Urine Nitrite Negative (NEGATIVE) Urine Bilirubin Negative (NEGATIVE) Urine Urobilinogen 0.2 (0.2-1.0) EU/dL Ur Leukocyte Esterase Negative (NEGATIVE) Urine RBC 0-5 (0-5) Urine WBC 0-5 (0-5) Ur Epithelial Cells Rare Amorphous Sediment Rare Urine Bacteria Rare Urine Mucus Rare Meds: Medications Discontinued Medications Generic Name Dose Route Start Last Admin Trade Name Freq PRN Reason Stop Dose Admin Triamcinolone Acetonide 60 mg 12/08/20 18:17 12/08/20 18:23 Kenalog-40 IM 12/08/20 23:59 60 mg ASDIRECTED PRN Administration Inflammation - Re-Assessments/Exams Free Text/Narrative Re-Assessment/Exam: 12/08/20 18:19 pt had a neg xray, neg labs, normal trop, US did not show any clots. Pt has normal pulses uric acid was normal. Pt was given kenalog 60 mg im. 12/11/20 08:26 Departure - Departure Time of Disposition: 18:20 Disposition: Home, Self-Care 01 Condition: Fair Clinical Impression: Arthritis of ankle, left - Discharge Information Instructions: Arthritis, [id number] Referrals: PCP,None [Primary Care Provider] - Forms: ED Department Discharge Care Plan Goals: use a walker with minimal weight bearing, moist warm heat to the area, naprosyn 500mg bid for the next 5 days, use tylenol 650 q6h for pain, rtc if increased problems. Sepsis Event Note (ED) - Evaluation Sepsis Screening Result: No Definite Risk
[2020-12-08] MEDS ORDERED: Triamcinolone Acetonide 40 MG/ML 1 ML SDV IM PRN (18:17)
[2020-12-08 18:27] VITALS: BP 186/79; PULSE 69
--- NOTE | 2020-12-11 08:46 | CR ---
Ankle Min 3V Lt CLINICAL HISTORY: Severe pain FINDINGS: The soft tissues are mildly swollen. No acute fracture or dislocation is noted. Ankle mortise is intact. Bones are osteoporotic. There is a prominent calcaneal spur. Impression: No fracture or osseous lesion Calcaneal spur Osteoporosis
--- NOTE | 2020-12-11 08:46 | US ---
VL Duplex Lwr Ext Veins Ltd Lt INDICATION: pain in the lower calf postrrior FINDINGS: Ultrasound examination of the lower extremity using Doppler and compressive technique demonstrates that the common femoral, femoral, and popliteal veins are patent, and negative for thrombus. The calf veins were segmentally visualized and are negative where seen. IMPRESSION: Negative for deep venous thrombosis.
== END 2020-12-08 19:19 | disposition home or self-care (01) ==
LOC: JP.ED 16:04
DX: M19.072 Primary osteoarthritis, left ankle and foot (principal); I25.10 Atherosclerotic heart disease of native coronary artery without angina pectoris; I10 Essential (primary) hypertension; I25.2 Old myocardial infarction; E78.5 Hyperlipidemia, unspecified; Z87.891 Personal history of nicotine dependence; Z79.899 Other long term (current) drug therapy; Z79.82 Long term (current) use of aspirin; Z91.048 Other nonmedicinal substance allergy status; Z91.040 Latex allergy status; Z88.5 Allergy status to narcotic agent
CPT/HCPCS: 36415; 73610; 80053; 81001; 84484; 84550; 85025; 85379; 86140; 93005; 93971; 96372; 99285; J3301

== ENCOUNTER 2022-01-10 17:55 | Emergency (ER) | payer MEDICARE, MEDICAID ==
[2022-01-10 19:50] VITALS: PULSE 72
[2022-01-10 20:20] VITALS: BP 157/77
[2022-01-10] MEDS ORDERED: Aluminum Hydroxide/Magnesium Hydroxide/Simethicone Susp 30 ML Cup PO STA (20:33)
== END 2022-01-10 20:51 | disposition home or self-care (01) ==
LOC: JP.ED 17:55
DX: K57.32 Diverticulitis of large intestine without perforation or abscess without bleeding (principal); R14.3 Flatulence; I25.10 Atherosclerotic heart disease of native coronary artery without angina pectoris; I10 Essential (primary) hypertension; I25.2 Old myocardial infarction; E66.9 Obesity, unspecified; Z88.5 Allergy status to narcotic agent; Z91.048 Other nonmedicinal substance allergy status; Z91.040 Latex allergy status; Z79.82 Long term (current) use of aspirin; Z79.899 Other long term (current) drug therapy; Z87.891 Personal history of nicotine dependence; Z68.37 Body mass index [BMI] 37.0-37.9, adult
CPT/HCPCS: 36415; 74150; 80053; 81001; 83605; 83690; 85025; 86140; 99283; 99284-25; A9270-GY